=== PATIENT | male | born 1970 | race Two or more races ===

== ENCOUNTER 2020-11-14 14:34 | Outpatient (REF) | payer OTHER, SELFPAY ==
--- NOTE | ~2020-11-14 | US_ITS ---
EXAMINATION: US ABDOMEN LIMITED CLINICAL INFORMATION: Umbilical pain with cough/strain for 3 months. COMPARISON: None TECHNIQUE: Real-time imaging of the periumbilical region there is performed using grayscale imaging and color Doppler. Examination is performed at rest and with Valsalva. FINDINGS: There is 1 cm diastases at the umbilicus with borderline bowel herniation during Valsalva. There is no fixed hernia and loop of bowel or bowel wall thickening. No abdominal wall mass or hyperemia on color Doppler. US/US abdomen limited IMPRESSION: Borderline reducible herniation at the umbilicus. Abdominal wall may be further assessed with CT or MRI.
== END 2020-11-14 14:35 | disposition home or self-care (01) ==
LOC: HO.HMGCX 14:34
PROVIDERS: PCP Physician Assistant; Visit Provider Nurse Practitioner Family
DX: K42.9 Umbilical hernia without obstruction or gangrene (principal)
CPT/HCPCS: 76705

== ENCOUNTER → 2021-02-07 09:44 | Outpatient (BNVA) | payer OTHER, SELFPAY | PROVIDERS: PCP Physician Assistant; Visit Provider Surgery ==

== ENCOUNTER 2021-02-08 10:19 | Outpatient (REF) | payer OTHER, SELFPAY ==
[2021-02-08 11:34] LABS: Alanine Aminotransferase 34 U/L (0-40); Albumin Level 4.4 g/dL (3.5-5.0); Alkaline Phosphatase 74 U/L (39-117); Anion Gap 12 (12-20); Aspartate Amino Transferase 22 U/L (5-37); Bilirubin Total 0.4 mg/dL (0.0-1.0); Blood Urea Nitrogen 11 mg/dL (9-16); Calcium 9.6 mg/dL (8.4-10.2); Carbon Dioxide 26 mmol/L (22-29); Chloride 107 mmol/L (96-108); Cholesterol 210 mg/dL; Estimated Glomerular Filt Rate > 60; Glucose Fasting 126 mg/dL (60-99); HDL Cholesterol 51 mg/dL; LDL Cholesterol Calculated 136 mg/dl; Potassium 4.5 mmol/L (3.3-5.1); Sodium 140 mmol/L (135-145); Total Protein 7.2 g/dL (6.5-8.0); Triglycerides 117 mg/dL
[2021-02-08 11:38] LABS: Hematocrit 43.9 % (42-52); Hemoglobin 14.2 g/dl (14.0-18.0); Mean Corpuscular HGB Conc 32.3 g/dl (31.0-36.0); Mean Corpuscular Hemoglobin 25.3 pg (27.0-33.0); Mean Corpuscular Volume 78.3 fL (80-98); Mean Platelet Volume 11.6 fL (9.4-12.4); Platelet Count 243 X10*3/uL (160-400); Red Blood Count 5.61 X10*6/uL (4.60-5.80); Red Cell Distribution Width 15.9 % (11.0-16.0); White Blood Count 8.1 X10*3/uL (4.8-10.8)
[2021-02-08 11:53] LABS: Estimated Average Glucose 97 mg/dL
[2021-02-08 11:55] LABS: Prostate Specific Antigen Scr 0.47 ng/mL (<0.05-4.0)
== END 2021-02-08 10:20 | disposition home or self-care (01) ==
LOC: HO.LAB 10:19
PROVIDERS: PCP Physician Assistant; Visit Provider Physician Assistant
DX: Z12.5 Encounter for screening for malignant neoplasm of prostate (principal); Z13.1 Encounter for screening for diabetes mellitus; Z13.220 Encounter for screening for lipoid disorders; I10 Essential (primary) hypertension
CPT/HCPCS: 36415; 80053; 80061; 83036; 84153; 85027

== ENCOUNTER → 2021-03-05 14:01 | Outpatient (BNVA) | payer OTHER, SELFPAY | PROVIDERS: PCP Physician Assistant; Referring Provider Physician Assistant; Visit Provider Nurse Practitioner Family ==

== ENCOUNTER 2021-03-12 06:54 | Day surgery (SDC) | payer OTHER, SELFPAY ==
[2021-03-06 14:07] VITALS: BMI 35.2
--- NOTE | 2021-03-11 10:30 | HO.ANESPROP2 ---
Documented by User: Eve Sexton NP 03/11/21 10:32 HPI - Anesthesia Eval Consult details Narrative: 51yo M for Hernia Repair Umbilical with Poss Mesh PMFSH Active Problems Active Problems: All Active Problems (Updated 02/07/21 @ 10:12 by Obed Rivera MD) Umbilical hernia (Acute) Colon cancer screening (Acute) Screening for hypercholesterolemia (Acute) Screening for diabetes mellitus (DM) (Acute) Pain, dental (Acute) Constipation (Acute) Umbilical hernia (Acute) PRANAY (generalized anxiety disorder) (Acute) Erectile disorder, generalized, mild (Acute) Insomnia (Acute) Smoker (Acute) Past Medical History Medical History Constipation Elevated blood pressure reading Erectile disorder, generalized, mild PRANAY (generalized anxiety disorder) Insomnia Smoker Umbilical hernia Family History Family History Father No problems noted. Mother Hepatitis C Liver cancer Surgical History Surgical History No pertinent past surgical history Social History Social History Housing: House Alcohol intake: never Patient Tobacco Use Status: Current everyday Tobacco user Tobacco use type: Cigarette Cigarette Packs Per Day: 1 Cigarettes Per Day: 20.0 e-Cigarette/Vaping Use: Never Used Second Hand Smoke Exposure: No Advance Directives Information Provided: No Advance Directives on File: No service: No Current occupational status: employed Meds Allergies Allergy/AdvReac Type Severity Reaction Status Date / Time No Known Allergies Allergy Verified 03/05/21 14:06 Exam Exam Date and Time: March 11, 2021 1031 Height,Weight and Vital Signs: Height 5 ft 4 in Weight 93.2 kg Pertinent Lab Results Pertinent Lab Results: Laboratory Tests 02/08/21 02/08/21 10:26 10:26 WBC 8.1 Hgb 14.2 Hct 43.9 Plt Count 243 Sodium 140 Potassium 4.5 Chloride 107 Carbon Dioxide 26 BUN 11 Creatinine 1.00 Assessment and Plan Assessment Anesthesia Assessment: Chart Reviewed Documented by User: Cecilia Ferrara MD 03/12/21 08:45 PMFSH Past Medical History Medical History Constipation Elevated blood pressure reading Erectile disorder, generalized, mild PRANAY (generalized anxiety disorder) Insomnia Smoker Umbilical hernia Family History Family History Father No problems noted. Mother Hepatitis C Liver cancer Family history of problems with anesthesia: No Surgical History Surgical History No pertinent past surgical history History of Problems with Anesthesia: No Social History Social History Housing: House Alcohol intake: never Patient Tobacco Use Status: Current everyday Tobacco user Tobacco use type: Cigarette Cigarette Packs Per Day: 1 Cigarettes Per Day: 20.0 e-Cigarette/Vaping Use: Never Used Second Hand Smoke Exposure: No Advance Directives Information Provided: No Advance Directives on File: No service: No Current occupational status: employed Meds Allergies Allergy/AdvReac Type Severity Reaction Status Date / Time No Known Allergies Allergy Verified 03/05/21 14:06 Exam Airway Mallampati Class: II TM Dist: >3cm Neck ROM: Full Loose/Missing/Broken Teeth: Yes Assessment and Plan Assessment Anesthesia Assessment: Anesthesia Plan Discussed Final Anesthetic Review Family History of Problems with Anesthesia: No History of Problems with Anesthesia: No NPO: Yes ASA Class: II Final Preanesthetic Review: No Changes in Pt Med Stat, Meds/Allgs Chart Reviewed, Consent Obtained/Reviewed and Anes Risks/Benef Reviewed Patient Risk: Low Procedure Risk: Low Assessment/Block/Sedation in SS: Assess/Block/Sedation-SS Anesthetic Plan Anesthetic Plan: GA Disposition: Standard PACU
[2021-03-12] VITALS (7 sets, daily range): BP systolic 119–146; BP diastolic 81–99; PULSE 68–77; RESP 16–20; TEMP 36–36.2; O2SAT 94–100
[2021-03-12] MEDS: Lactated Ringers 1,000 ML 100 ML IVCONT (07:27)
--- NOTE | 2021-03-12 08:22 | MHC.SHP ---
Pre-Procedural Eval Section A Date of Service: 03/12/21 Section B Chief Complaint: Umbilical Hernia Allergies: Allergies Allergy/AdvReac Type Severity Reaction Status Date / Time No Known Allergies Allergy Verified 03/05/21 14:06 Plan I have reviewed the history and physical and performed a pertinent physical examination on my patient. No changes have occurred unless specified.
--- NOTE | 2021-03-12 08:57 | P.OP_ITS ---
Operative Note Operative Note Date of Service: 03/12/21 Narrative: Preop diagnosis: Umbilical hernia Postop diagnosis: Umbilical hernia Procedure: Repair of umbilical hernia with Ventralex mesh Surgeon: Obed Rivera MD [employer] hotel assistant general manager: DIPTI Carter The patient is a 51-year-old male with a reducible mass on the umbilicus just at the infraumbilical margin. In view of symptoms, he wanted to proceed with repair of this umbilical hernia. He understood the technique of the procedure. He was aware of the risks, benefits, and alternatives She was brought to the operating room and placed supine on the table under general anesthesia via laryngeal mask airway. The abdomen is prepped and draped in the usual sterile fashion. A surgical time-out was done. The patient received cefazolin 2 g IV preoperatively. I infiltrated the periumbilical area with lidocaine 1%. I then made an infraumbilical incision transversely in a curvilinear fashion using a blade 15. This was carried down through the full-thickness of the skin and subcutaneous fat with electrocautery. We then proceeded to define a plane of dissection underneath the umbilicus to lift this up above the fascia. This was done using electrocautery as well as Metzenbaum scissors. By doing so, I was able to visualize the hernia which contained fat. I the sac from the rest of the umbilicus and subcutaneous layer. I continued to sharply dissect this down to the fascial level. I sharply dissected the sac from the fascial edges by dividing the adhesions including part of the sac using electrocautery. By doing so was able to completely free up the entire hernia and this was reduced through the defect. The defect measured about 1.5 cm in diameter. I made sure that the margins around defect was clear by visually inspecting this. I then positioned a small-sized Ventralex mesh underneath the fascial defect. This was flattened. I secured the Prolene straps of the mesh with Prolene to suture to the fascia. I trimmed the straps flush at the fascial level. I then proceeded to close the fascial defect with a [id number] Maxon 1 stitch. I irrigated. I reapposed the subcutaneous layer with Dexon 3-0 interrupted sutures. Skin closure was achieved with Dexon 4-0 subcuticular running stitch. I infiltrated the area with Marcaine 0.5% for postop analgesia. Steri-Strips and dressings were applied and the procedure was completed The patient tolerated procedure well.. Initial fine counts of sponges and instruments were correct. Estimated blood loss about 2 cc. The patient is extubated without difficulty and transferred to the recovery room with stable vital signs.
--- NOTE | 2021-03-12 09:01 | PM.OP ---
Brief Operative Note Date of Service: 03/12/21 Pre-op diagnosis: Umbilical hernia Post-op diagnosis: same Procedure: Repair of umbilical hernia with Ventralex mesh Surgeon: Obed Rivera MD Anesthesia: GLMA Was an Specimen Transporter used for this Procedure?: No Specimen Transporter: Yaz Carter Estimated blood loss (mL): 2 Pathology: none sent Condition: stable Disposition: PACU
== END 2021-03-12 10:40 | disposition home or self-care (01) ==
PROVIDERS: PCP Physician Assistant; Visit Provider Surgery
PROC: (CPT 49585; principal; 2021-03-12 08:30)
DX: K42.9 Umbilical hernia without obstruction or gangrene (principal)
CPT/HCPCS: 49585; C1781; J0690; J1100; J2250; J2405; J3010

== ENCOUNTER → 2021-03-25 10:39 | Outpatient (BNVA) | payer OTHER, SELFPAY | PROVIDERS: PCP Physician Assistant; Referring Provider Physician Assistant; Visit Provider Surgery ==

== ENCOUNTER 2021-05-15 08:16 | Day surgery (SDC) | payer OTHER, SELFPAY ==
[2021-05-08 13:34] VITALS: BMI 35.3
--- NOTE | 2021-05-14 10:17 | HO.ANESPROP2 ---
Documented by User: Eve Sexton NP 05/14/21 10:18 HPI - Anesthesia Eval Consult details Narrative: 51yo M for Colonoscopy PMF Active Problems Active Problems: All Active Problems (Updated 05/08/21 @ 13:34 by Amanda Gomez RN) Umbilical hernia (Acute) Pain, dental (Acute) Screening for diabetes mellitus (DM) (Acute) Screening for hypercholesterolemia (Acute) Colon cancer screening (Acute) Annual physical exam (Acute) HTN (hypertension) (Acute) Smoker (Acute) Borderline high cholesterol (Acute) Insomnia (Acute) Obese (Acute) Umbilical hernia (Acute) Past Medical History Medical History Constipation COVID-19 vaccine series completed Elevated blood pressure reading Erectile disorder, generalized, mild PRANAY (generalized anxiety disorder) Insomnia Smoker Umbilical hernia Family History Family History Father No problems noted. Mother Hepatitis C Liver cancer Family history of problems with anesthesia: No Surgical History Surgical History History of umbilical hernia repair History of Problems with Anesthesia: No Social History Social History Housing: House Are you a primary primary care sales representative to a significant other at home: No Do you presently have visiting nurse or other home services: No Alcohol intake: never Patient Tobacco Use Status: Current everyday Tobacco user Tobacco use type: Cigarette Cigarette Packs Per Day: 1 Cigarettes Per Day: 20.0 Years Smoked: 20 e-Cigarette/Vaping Use: Never Used Second Hand Smoke Exposure: No Use of substances other than those prescribed or required for medical reasons: No Have you been hit, kicked, punched, or otherwise hurt by someone within the past year? If so, by whom?: No Are you DNR?: No Advance Directives: No Advance Directives Information Provided: Yes (informational brochure mailed) Advance Directives on File: No Recently lost weight without trying: No Eating poorly because of decreased appetite: No Nutrition Risks: No Nutritional Risk service: No Current occupational status: employed Meds Allergies Allergy/AdvReac Type Severity Reaction Status Date / Time No Known Allergies Allergy Verified 05/15/21 08:20 Exam Exam Date and Time: May 14, 2021 1017 Height,Weight and Vital Signs: Height 5 ft 4 in Weight 93.44 kg Pertinent Lab Results Pertinent Lab Results: Laboratory Tests 02/08/21 02/08/21 10:26 10:26 WBC 8.1 Hgb 14.2 Hct 43.9 Plt Count 243 Sodium 140 Potassium 4.5 Chloride 107 Carbon Dioxide 26 BUN 11 Creatinine 1.00 Assessment and Plan Assessment Anesthesia Assessment: Chart Reviewed Final Anesthetic Review Family History of Problems with Anesthesia: No History of Problems with Anesthesia: No Documented by User: Lamin Macias 05/15/21 08:57 PMFSH Past Medical History Medical History Constipation COVID-19 vaccine series completed Elevated blood pressure reading Erectile disorder, generalized, mild PRANAY (generalized anxiety disorder) Insomnia Smoker Umbilical hernia Functional capacity: independent ambulation Family History Family History Father No problems noted. Mother Hepatitis C Liver cancer Surgical History Surgical History History of umbilical hernia repair Social History Social History Housing: House Are you a primary primary care sales representative to a significant other at home: No Do you presently have visiting nurse or other home services: No Alcohol intake: never Patient Tobacco Use Status: Current everyday Tobacco user Tobacco use type: Cigarette Cigarette Packs Per Day: 1 Cigarettes Per Day: 20.0 Years Smoked: 20 e-Cigarette/Vaping Use: Never Used Second Hand Smoke Exposure: No Use of substances other than those prescribed or required for medical reasons: No Have you been hit, kicked, punched, or otherwise hurt by someone within the past year? If so, by whom?: No Are you DNR?: No Advance Directives: No Advance Directives Information Provided: Yes (informational brochure mailed) Advance Directives on File: No Recently lost weight without trying: No Eating poorly because of decreased appetite: No Nutrition Risks: No Nutritional Risk service: No Current occupational status: employed Meds Allergies Allergy/AdvReac Type Severity Reaction Status Date / Time No Known Allergies Allergy Verified 05/15/21 08:20 Exam Airway Mallampati Class: II TM Dist: >3cm Neck ROM: Full Loose/Missing/Broken Teeth: Yes Heart: rrr Lungs: b/l breath sounds Assessment and Plan Final Anesthetic Review NPO: Yes ASA Class: II Final Preanesthetic Review: Meds/Allgs Chart Reviewed and Anes Risks/Benef Reviewed Patient Risk: Intermediate Procedure Risk: Intermediate Anesthetic Plan Anesthetic Plan: MAC: Disposition: Standard PACU
[2021-05-15 08:34] VITALS: BP 147/97; PULSE 92; RESP 20; TEMP 36.6; O2SAT 99
[2021-05-15] MEDS: Lactated Ringers 1,000 ML 100 ML IVCONT (08:43)
--- NOTE | 2021-05-15 09:06 | P.HPSUR_ITS ---
Pre-Procedural Eval Section A Date of Service: 05/15/21 Section B Chief Complaint: screening Relevant Family History (Specify if Yes): No Relevant Social History: Tobacco Use Present Medications: see Short Stay Collaborative assessment Medical History: Significant History (Constipation COVID-19 vaccine series completed Elevated blood pressure reading Erectile disorder, generalized, mild PRANAY (generalized anxiety disorder) Insomnia Smoker Umbilical hernia) History of Previous Operations: Relevant previous surgery/procedure and date(s) (umbilical hernia repair) Allergies: Allergies Allergy/AdvReac Type Severity Reaction Status Date / Time No Known Allergies Allergy Verified 05/15/21 08:20 Review of Systems Sugical H&P ROS: Negative: Constitution, Cardiovascular, Respiratory, Neurological, Psychiatric, Hem-Onc, Allergic/Immunologic, Gastrointestinal, G enitourinary, Musculoskeletal, Integumentary, Endocrine and Eyes/Ears/Nose/Throat Exam Surgical H&P Exam: Normal: HEENT, Normal: Heart, Normal: Lungs, Normal: Extremities, Normal: Abdomen, Normal: Skin and Normal: Neurological Plan Diagnosis/Plan: Unchanged I have reviewed the history and physical and performed a pertinent physical examination on my patient. No changes have occurred unless specified.
--- NOTE | 2021-05-15 09:07 | PM.OP ---
Brief Operative Note Date of Service: 05/15/21 Pre-op diagnosis: colon screen Post-op diagnosis: same Procedure: see op note Surgeon: Jason Willett MD Anesthesia: MAC Was an Account Support Manager used for this Procedure?: No Estimated blood loss (mL): 0 Condition: stable Disposition: PACU
--- NOTE | 2021-05-15 09:08 | W.PM.OPN ---
Operative Note Operative Note Date of Service: 05/15/21 Narrative: Operative Information Procedure Description: Colonoscopy COLONOSCOPY Instrument: Olympus variable stiffness adult scope 190L Colonoscopy Monitoring: Vital signs and clinical assessment, continuous EKG monitoring, Pulse oximetry, Carbon Dioxide monitoring and blood pressure monitoring were done throughout the procedure. Colon withdrawal time was 21 minutes. Procedure: The patient was placed in the left lateral decubitis position and pre-procedure medications were administered. After a digital rectal examination of the ano-rectum, the video colonoscope was inserted into the rectum and advanced through the colon to the cecum/TI. The colonoscope was slowly withdrawn in a retrograde panoramic fashion and the colon mucosa was carefully examined including a retroflexed view of the rectum. Findings and interventions are described below. Procedure Difficulty:easy Findings: Terminal Ileum-normal Cecum:normal Ascending Colon: 10-12 mm sessile polyp raised with ORISE then removed with cold snare and x 2 clips applied for hemostasis Transverse Colon -normal Descending Colon:normal Sigmoid Colon: mild diverticulosis noted, 10 mm sessile polyp removed with cold snare Rectum: Retroflexion with medium sized internal hemorrhoids, grade II, x 2 sessile polyps 8-9 mm removed with cold snare Anorectum - internal hemorrhoids seen on forward view, mildly inflammed Colon preparation: Melville Bowel Preparation Scale Right colon; 3 Transverse colon: 3 Left colon; 3 (0 = Unprepared colon segment with mucosa not seen due to solid stool that cannot be cleared. 1 = Portion of mucosa of the colon segment seen, but other areas of the colon segment not well seen due to staining, residual stool and/or opaque liquid. 2 = Minor amount of residual staining, small fragments of stool and/or opaque liquid, but mucosa of colon segment seen well. 3 = Entire mucosa of colon segment seen well with no residual staining, small fragments of stool or opaque liquid) Impression and Post Procedure Diagnosis: polyps internal hemorrhoids diverticular disease Plan: High fiber diet leaflet Avoid straining at stool, epsom salts and sitz bath, anusol supps or cream Repeat Colonoscopy in 5 years due to polyps or earlier if clinically indicated Above findings were reviewed with the patient and relevant handouts were provided if indicated.
[2021-05-15 09:46] VITALS: BP 116/79; PULSE 92; RESP 13; TEMP 36.2; O2SAT 97
[2021-05-15 10:01] VITALS: BP 124/96; PULSE 88; RESP 16; TEMP 36.2; O2SAT 98
== END 2021-05-15 11:20 | disposition home or self-care (01) ==
PROVIDERS: PCP Physician Assistant; Visit Provider Internal Medicine Gastroenterology
PROC: 0DJD8ZZ Inspection of Lower Intestinal Tract, Via Natural or Artificial Opening Endoscopic (ICD-10-PCS; CPT 45378; principal; 2021-05-15 09:20)
DX: Z12.11 Encounter for screening for malignant neoplasm of colon (principal); D12.2 Benign neoplasm of ascending colon; D12.5 Benign neoplasm of sigmoid colon; D12.8 Benign neoplasm of rectum; K57.30 Diverticulosis of large intestine without perforation or abscess without bleeding; K64.1 Second degree hemorrhoids; K59.00 Constipation, unspecified; K42.9 Umbilical hernia without obstruction or gangrene; R03.0 Elevated blood-pressure reading, without diagnosis of hypertension; G47.00 Insomnia, unspecified; F41.1 Generalized anxiety disorder; F17.210 Nicotine dependence, cigarettes, uncomplicated; Z79.899 Other long term (current) drug therapy
CPT/HCPCS: 45385; 88305

== ENCOUNTER → 2021-05-29 07:58 | Outpatient (BNVA) | payer OTHER, SELFPAY | PROVIDERS: PCP Physician Assistant; Referring Provider Physician Assistant; Visit Provider Nurse Practitioner Family ==

== ENCOUNTER 2021-07-09 09:33 | Outpatient (REF) | payer OTHER, SELFPAY ==
--- NOTE | ~2021-07-09 | US_ITS ---
EXAMINATION: US ABDOMEN COMPLETE CLINICAL INFORMATION: Abdominal distention. Epigastric discomfort. Assess for biliary disease. COMPARISON: Ultrasound abdominal wall 11/14/2020. TECHNIQUE: Real-time imaging of the abdominal viscera. FINDINGS: PANCREAS: The visualized pancreas is normal in size and contour and echogenicity. No pancreatic ductal distention. No retroperitoneal effusion. The pancreatic tail is obscured by bowel gas and not imaged. ABDOMINAL AORTA: The proximal, mid, and distal segments are normal in caliber. INFERIOR VENA CAVA: Visualized portions are normal. LIVER: The liver is normal in size and smooth in contour. There is mild increased hepatic parenchymal echogenicity consistent with hepatic steatosis. Some minor subcapsular sparing is seen adjacent to the gallbladder fossa. No focal hepatic parenchymal lesion. No intrahepatic biliary ductal dilatation. GALLBLADDER: Normal. The gallbladder is physiologically distended without evidence of stones, sludge, polyps, wall thickening or pericholecystic fluid. Negative sonographic Newton's sign. COMMON BILE DUCT: Normal in caliber measuring 0.3 cm in diameter. RIGHT KIDNEY: Normal. No hydronephrosis. No renal calculi or focal parenchymal lesions. The kidney measures 11.7 cm in maximum dimension. LEFT KIDNEY: Normal. No hydronephrosis. No renal calculi or focal parenchymal lesions. The kidney measures 12.8 cm in maximum dimension. SPLEEN: Normal. The spleen measures 10.6 cm in maximum dimension. FREE FLUID: None. US/US abdomen complete IMPRESSION: 1. Hepatic steatosis. No focal parenchymal lesion. 2. Normal gallbladder. No ductal dilatation.
== END 2021-07-09 09:34 | disposition home or self-care (01) ==
LOC: HO.US 09:33
PROVIDERS: PCP Physician Assistant; Visit Provider Physician Assistant
DX: R14.0 Abdominal distension (gaseous) (principal)
CPT/HCPCS: 76700

== ENCOUNTER 2021-09-20 11:16 | Outpatient (REF) | payer OTHER, SELFPAY ==
[2021-09-20 11:57] LABS: Hematocrit 45.6 % (42.0-52.0); Hemoglobin 14.5 g/dl (14.0-18.0); Mean Corpuscular HGB Conc 31.8 g/dl (31.0-36.0); Mean Corpuscular Volume 78.5 fL (80.0-98.0); Mean Platelet Volume 10.6 fL (9.4-12.4); Platelet Count 258 X10*3/uL (160-400); Red Blood Count 5.81 X10*6/uL (4.60-5.80); Red Cell Distribution Width 15.6 % (11.0-16.0)
[2021-09-20 12:21] LABS: Alanine Aminotransferase 43 U/L (0-40); Albumin Level 4.6 g/dL (3.5-5.0); Alkaline Phosphatase 76 U/L (39-117); Anion Gap 11 (12-20); Aspartate Amino Transferase 26 U/L (5-37); Bilirubin Total 0.5 mg/dL (0.0-1.0); Blood Urea Nitrogen 10 mg/dL (9-16); Calcium 9.8 mg/dL (8.4-10.2); Carbon Dioxide 28 mmol/L (22-29); Chloride 104 mmol/L (96-108); Cholesterol 218 mg/dL; Estimated Glomerular Filt Rate > 60; Glucose Fasting 106 mg/dL (60-99); HDL Cholesterol 47 mg/dL; LDL Cholesterol Calculated 150 mg/dl; Potassium 4.4 mmol/L (3.3-5.1); Sodium 139 mmol/L (135-145); Total Protein 7.6 g/dL (6.5-8.0); Triglycerides 107 mg/dL
[2021-09-20 12:41] LABS: TSH reflex Free T4 0.58 uIU/mL (0.32-4.0)
== END 2021-09-20 11:17 | disposition home or self-care (01) ==
LOC: HO.LAB 11:16
PROVIDERS: PCP Physician Assistant; Visit Provider Physician Assistant
DX: E78.9 Disorder of lipoprotein metabolism, unspecified (principal); I10 Essential (primary) hypertension
CPT/HCPCS: 36415; 80053; 80061; 84443; 85027

== ENCOUNTER 2021-09-21 09:29 | Outpatient (REF) | payer OTHER, SELFPAY ==
[2021-09-21 09:53] LABS: Creatinine Urine 217.52 mg/dL; Microalbum/Creatinine Ratio Ur 7.3 ug/mg cr
== END 2021-09-21 09:30 | disposition home or self-care (01) ==
LOC: HO.LNP 09:29
PROVIDERS: Visit Provider Physician Assistant
DX: I10 Essential (primary) hypertension (principal); K29.70 Gastritis, unspecified, without bleeding
CPT/HCPCS: 82043; 87338

== ENCOUNTER 2023-04-06 07:58 | Outpatient (AMB) | payer OTHER, SELFPAY ==
--- NOTE | 2023-04-06 08:08 | A.OFFPC_ITS ---
Vital Signs 04/06/23 08:10 Height 5 ft 4 in Weight 217 lb BMI 37.2 BP 138/90 H Blood Pressure Location Lt brachial Position Sitting Pulse 73 Pulse Source Pulse Oximeter Pulse Oximetry (%) 98 Oxygen Delivery Method Room Air Intake Visit Reasons: PE Intake Note: Patient here for a physical exam Customer Account Specialist Required: No Accompanied by: Self / Same As Patient Allergies No Known Allergies Allergy (Verified 04/06/23 08:15) Medication List - Last Reconciled 04/06/23 by Missael Zafar PA-C blood pressure test kit-large As directed Tobacco use date assessed: 04/06/23 Dental Screening Dental Screen Date: 04/06/23 Did you have a dental visit in the last 12 months?: No Did you have a dental problem in the last 6 months where you did not have access to dental care?: No Was dental information given to patient?: Patient has dentist HPI PE HPI Details Patient is a 53 -year-old male here today for an annual physical ?Patient has past medical history of tobacco use disorder, hypertension, erectile dysfunction, obesity. . smoking: At last visit we discussed his smoking and unfortunately patient continues to smoke.? He reports his trigger is his stress and anxiety.? ?t. He has tried Wellbutrin though was ineffective. He would like to try nicotine patches again as it has been effective for him in the past .. GERD:? Reports using omeprazole on a p.r.n. basis.? Reports his GI symptoms have worsened over last several months. He reports a lot of abdominal distension and gas buildup after he eats..? He did get ultrasound of his abdomen that did show mild fatty liver disease Elevated blood pressure readings:? Blood pressure today in office elevated. He reports having 2 cigarettes before his doctor's appointment today. He is not interested in starting blood pressure medication at this time will like to work on lifestyle modifications to reduce his blood pressure.? He was advised to monitor blood pressure at home though has not gotten himself a blood pressure cuff to do home blood pressure monitoring. LABS: ? Unfortunately has not gotten labs done before today's appointment. .. ? Obesity:? Unfortunately gained weight since last visit,? he does understand his BMI is over 30 and is willing to adapt to eating habits to be more physically active to reduce his weight. Vaccine: UTD with COVID Vaccine,, Declines flu vaccine, considering Shingles vaccine , Need Tdap. . Colonoscopy: Colonoscopy done in 2020. Had colon polyp needs repeat 3 year (2023) [facility] Medical History (Updated 04/06/23 @ 08:23 by Missael Zafar PA-C) Pain, dental Internal hemorrhoid Tubular adenoma COVID-19 vaccine series completed Umbilical hernia Constipation PRANAY (generalized anxiety disorder) Erectile disorder, generalized, mild Insomnia Smoker Elevated blood pressure reading Surgical History Hx of colonoscopy History of umbilical hernia repair Family History Father No problems noted. Mother Hepatitis C Liver cancer Social History Housing: House Are you a primary progressive care nurse to a significant other at home: No Do you presently have visiting nurse or other home services: No Alcohol intake: never Patient Tobacco Use Status: Current everyday Tobacco user Tobacco use type: Cigarette Cigarette Packs Per Day: 1 Cigarettes Per Day: 20.0 Years Smoked: 20 e-Cigarette/Vaping Use: Never Used Second Hand Smoke Exposure: No service: No Current occupational status: employed Current occupation: [employer] de[employer] Current occupational exposures/hazards: No Cognitive needs: No Hearing needs: No Vision needs: No Questionnaire PHQ-9 Over the last 2 weeks, how often have you been bothered by any of the following problems? 1. Little interest or pleasure in doing things: not at all 2. Feeling down, depressed, or hopeless: not at all 3. Trouble falling or staying asleep, or sleeping too much: not at all 4. Feeling tired or having little energy: not at all 5. Poor appetite or overeating: not at all 6. Feeling bad about yourself - or that you are a failure or have let yourself or your family down: not at all 7. Trouble concentrating on things, such as reading the newspaper or watching television: not at all 8. Moving or speaking so slowly that other people could have noticed. Or the opposite - being so fidgety or restless that you have been moving around a lot more than usual: not at all 9. Thoughts that you would be better off or of hurting yourself in some way: not at all Total score: 0 Depression Screening Interpretation: Negative Depression Screening Done: Yes 35844 - PHQ-9 Billing: Yes Source: Developed by Drs. Jean Carlos Cronin, Yessy Junior, Donnie Saunders and colleagues, with an educational joaquin from [employer]. Thrive Questionnaire Date Thrive assessed: 04/06/23 I am a: Patient What is your living situation today?: I have a steady place to live Within the past 12 months, did the food you bought not last and you didn't have the money to get more?: Never true Within the past 12 months, did you worry whether your food would run out before you got money to buy more?: Never true Do you have trouble paying for medicines?: No Do you have trouble getting transportation to medical appointments?: No Do you have trouble paying your heating and electricity bill?: No Do you have trouble taking care of your child, family member or friend?: No Do you have trouble with day-to-day activities such as bathing, preparing meals, shopping, managing finances, etc.?: No Are you currently unemployed and looking for a job?: No Are you interested in more education?: No Please select the resources that you would like help with: None Currently or been in a relationship where the following occur: no concerns reported AUDIT C Alcohol Use Questionnaire (AUDIT-C) 1. How often do you have a drink containing alcohol?: Monthly or less 2. How many drinks containing alcohol do you have on a typical day when you are drinking?: 1 or 2 3. How often do you have six or more drinks on one occasion?: Never Total Score: 1 PRANAY-7 AMB Questionnaire PRANAY-7 Date PRANAY - 7 assessed: 04/06/23 Feeling nervous, anxious, or on edge: 0 = Not at all Not being able to stop or control worryin = Not at all Worrying too much about different things: 0 = Not at all Trouble relaxin = Not at all Being so restless that it is hard to sit still: 0 = Not at all Becoming easily annoyed or irritable: 0 = Not at all Feeling afraid as if something awful might happen: 0 = Not at all Total PRANAY-7 score (0-4 normal; 5-9 mild; 10-14 moderate; 15-21 severe): 0 Source: Developed by Drs. Jean Carlos Cronin, Yessy Junior, Donnie Saunders and colleagues, with an educational joaquin from [employer]. PRANAY-7 Assessment Billing PRANAY-7 Assessment Tool: PRANAY-7 Assessment 71948 Review of Systems Const Denies body aches, Denies chills, Denies excessive sweating, Denies fatigue, Denies fever(s) and Denies headache(s) Eyes Denies blurry vision ENT Denies dysphagia, Denies vertigo, Denies dizziness, Denies headache(s), Denies hearing loss and Denies tinnitus Card Denies chest pain, Denies chest pain with activity, Denies syncope, Denies irregular heart rhythm and Denies dyspnea Resp Denies chest congestion, Denies cough, Denies hemoptysis, Denies dyspnea and Denies wheezing GI Denies abdominal pain, Denies melena, Denies hematochezia, Denies coffee ground emesis, Denies dysphagia, Denies diarrhea, Denies nausea and Denies vomiting Denies difficulty urinating, Denies dysuria, Denies urinary frequency, Denies urinary hesitancy and Denies urinary urgency Musc Denies arthralgias, Denies limited range of motion, Denies muscle cramps and Denies muscle weakness Skin/Breast Denies rash and Denies skin ulcer Neuro Denies Abnormal speech present, Denies confusion, Denies vertigo, Denies dizziness, Denies syncope, Denies headache(s), Denies memory loss and Denies seizure-like activity Psych Denies anxiety, Denies confusion, Denies depression, Denies memory loss, Denies panic attacks and Denies paranoia Endo Denies excessive sweating, Denies fatigue, Denies flushing, Denies polydipsia and Denies polyuria Aller/Immun Denies wheezing Physical exam (Primary Care) Vital Signs: Last Vital Signs Pulse 73 04/06/23 08:10 BP 138/90 H 04/06/23 08:10 Pulse Ox 98 04/06/23 08:10 Oxygen Delivery Method Room Air 04/06/23 08:10 BMI result Body Mass Index 37.2 BMI Assessment/Plan discussion: High Tobacco/Smoking Status: Tobacco use Status Tobacco use date assessed 04/06/23 04/06/23 08:14 Patient Tobacco Use Status Current everyday Tobacco 04/06/23 08:14 Tobacco use type Cigarette 04/06/23 08:14 e-Cigarette/Vaping Use Never Used 04/06/23 08:14 Are you ready to quit: No Tobacco cessation counseling provided: Yes Items discussed: Nicotine replacement Relapse Prevention: discussed the importance of a supportive environment, di scussed negative mood or depression after quitting, weight gain after smoking is common and discussed dietary, exercise and/or lifestyle changes Number of minutes spent counselin CPT code: 47311 - 4-10 Minutes PHQ-9: PHQ-9 Score PHQ-9: Total score 0 04/06/23 08:41 Depression Screening Interpretation: Negative Thrive Assessment: Date of Thrive Assessment Date Thrive assessed 04/06/23 04/06/23 08:14 Currently or been in a relationship where the following occur: no concerns reported Const Other: OBESE General: cooperative, comfortable, no acute distress, alert and awake; No confusion Orientation/consciousness: oriented to person, oriented to place, patient oriented x3 and No confusion HENMT Head: Yes normocephalic Ears: external ears normal and TM's normal bilaterally Face and sinus: No sinus tenderness Mouth: Normal oral and palatal mucosa present and tongue normal Teeth and gingiva: dentition normal and gingiva normal Throat: Yes posterior oropharynx normal, Yes tonsils normal and Yes uvula midline Eyes Conjunctivae: conjunctivae normal Sclerae: sclerae normal Pupils: Equal, round and reactive pupils present EOM: EOMs intact bilaterally Direct Ophthalmoscopy: No no photophobia Neck Neck: Yes no lymphadenopathy, No tender and Yes no JVD Thyroid: Thyroid normal Carotids: no bruits Chest Chest palpation & inspection: no tenderness Resp Effort & Inspection: normal respiratory effort, no audible wheezes, not labored and no stridor Auscultation: no crackles, no rales, no rhonchi and no wheezes Cardio Jugular venous distension: no JVD Rate: regular rate, not bradycardic and not tachycardic Rhythm: regular rhythm Bruits: no carotid bruits Peripheral pulses: Peripheral pulses 2+ throughout GI Inspection: Yes normal to inspection, No abdominal wall ecchymosis and No visible herniation Palpation (GI): Soft to palpation, nontender, no guarding, not rigid and No hepatosplenomegaly present Auscultation: normoactive bowel sounds General: Yes no CVA tenderness Back/Spine/Pelvis Back: no CVA tenderness and No back tenderness Cervical Spine: cervical ROM normal Thoracic/Lumbar Spine: thoracic and lumbar spine normal to inspection, straight leg raise negative bilaterally, No thoraco-lumbar ROM limited and No lumbar spinal tenderness Skin Lesions: no lesions Rashes: no rashes Wounds: no wounds Neuro General: oriented to person, oriented to place, patient oriented x3, CN's II-XI intact bilaterally and No confusion Cranial nerves: Yes Equal, round and reactive pupils present and Yes Normal accommodation reflex present Cognition (Neuro): normal cognition Speech: No Abnormal speech present Gait exam (Neuro): Normal gait present Motor exam (neuro): 5/5 motor strength present throughout Extrem Right upper extremity: full ROM; no cyanosis Left upper extremity: full ROM; no cyanosis Right lower extremity: no edema Left lower extremity: no edema Psych Appearance: grossly normal Mental Status: mental status grossly normal Affect: normal affect Attitude: cooperative Thought process: Normal thought process present Office Procedures Flu Questionnaire Does the patient have a severe egg allergy?: No Immunizations flu vacc [id number] 6mos up(PF) 60 mcg(15 mcgx4)/0.5 mL IM syringe Performing Provider: Missael Zafar PA-C [facility] Documented (not given) by: EVI Camara on 04/06/23 08:15 Reason Not Given: Patient Refused Assessment and Plan Assessment & Plan (1) Annual physical exam: Code(s): Z00.00 - Encounter for general adult medical examination without abnormal findings (2) Tobacco dependence: Code(s): F17.200 - Nicotine dependence, unspecified, uncomplicated Plan: Patient does understand he needs to quit smoking and has found very difficult to do so. He reports his trigger is his stress and anxiety. He is willing to try the nicotine patches again as it has worked for him in the past. (3) Obese: Code(s): E66.9 - Obesity, unspecified Qualifiers: Body mass index: BMI 36.0-36.9 Obesity classification: adult class 2 (BMI 35 - 39.9) Obesity type: due to excess calories Serious obesity comorbidity presence: without serious comorbidity Qualified Code(s): E66.09 - Other obesity due to excess calories; Z68.36 - Body mass index [BMI] 36.0-36.9, adult Plan: Unfortunately gained weight since last office visit. Patient does understand his BMI is well over 30 and is willing to be more physically active and adapted better eating habits to reduce his weight. (4) HTN (hypertension): Code(s): I10 - Essential (primary) hypertension Qualifiers: Hypertension type: primary hypertension Qualified Code(s): I10 - Essential (primary) hypertension Plan: Patient's blood pressure acceptable today in office. Has been trying to manage his blood pressure with lifestyle at this time. Occasionally does have high readings when he does come into the office though is not interested in starting blood pressure medication at this time. Will continue to monitor blood pressure at home with goal blood pressure be below 140/90 (5) Tubular adenoma: Code(s): D36.9 - Benign neoplasm, unspecified site Plan: Patient's most recent colonoscopy showing concerning colonic polyp. Needed r epeat colonoscopy in 3 years. 2023 (6) Gastritis: Code(s): K29.70 - Gastritis, unspecified, without bleeding Qualifiers: Chronicity: chronic Gastritis bleeding: without bleeding Gastritis type: unspecified gastritis Qualified Code(s): K29.50 - Unspecified chronic gastritis without bleeding Plan: Reports having some epigastric discomfort and often burping and belching. Willing to restart omeprazole due to his signs gastritis. Again advised to cut down and quit smoking. (7) Borderline high cholesterol: Code(s): E78.9 - Disorder of lipoprotein metabolism, unspecified Plan: Most recent lipid panel showing borderline high total cholesterol. Will work on lifestyle modifications to reduce his borderline high cholesterol. Orders: Orders Lipid Panel Today E78.9 - Disorder of lipoprotein metabolism, unspecified Prostate Specific Antigen Scr Today I10 - Essential (primary) hypertension, Z12.5 - Encounter for screening for malignant neoplasm of prostate Influenza [id number] Immunization Today Z23 - Encounter for immunization Comprehensive [place]. Panel Fast Today I10 - Essential (primary) hypertension H pylori Ag Stool Today K29.50 - Unspecified chronic gastritis without bleeding Referrals Thoracic Surgery Referral F17.200 - Nicotine dependence, unspecified, uncomplicated Medications: New nicotine 1 patch transdermal DAILY 14 days 14 ea 0RF F17.200 - Nicotine dependence, unspecified, uncomplicated nicotine 1 patch transdermal DAILY 14 days 14 ea 0RF F17.200 - Nicotine dependence, unspecified, uncomplicated omeprazole 20 mg PO DAILY 30 days 30 caps 3RF K29.50 - Unspecified chronic gastritis without bleeding simethicone (Gas Relief (simethicone)) after meals 180 mg PO BID 30 days 60 caps 3RF K29.50 - Unspecified chronic gastritis without bleeding Coding Level of Care Code Est Pt Prev Care 40-64y(28119) Diagnoses Annual physical exam Z00.00 Tobacco dependence F17.200 Class 2 obesity due to excess calories without serious comorbidity with body mass index (BMI) of 36.0 to 36.9 in adult E66.09; Z68.36 Body mass index: BMI 36.0-36.9 Obesity classification: adult class 2 (BMI 35 - 39.9) Obesity type: due to excess calories Serious obesity comorbidity presence: without serious comorbidity Primary hypertension I10 Hypertension type: primary hypertension Tubular adenoma D36.9 Chronic gastritis without bleeding, unspecified gastritis type K29.50 Chronicity: chronic Gastritis bleeding: without bleeding Gastritis type: unspecified gastritis Borderline high cholesterol E78.9 Additional Codes PRANAY-7 Assessment Billing - PRAANY-7 Assessment Tool: PRANAY-7 Assessment 38634 ([id number]) Vital Signs *Quality* - CPT code: 41223 - 4-10 Minutes ([id number])
[2023-04-06 08:10] VITALS: BP 138/90; PULSE 73; O2SAT 98; BMI 37.2
== END 2023-04-06 08:41 | disposition home or self-care (01) ==
PROVIDERS: Visit Provider Physician Assistant
DX: Z00.00 Encounter for general adult medical examination without abnormal findings (principal); F17.200 Nicotine dependence, unspecified, uncomplicated; E66.09 Other obesity due to excess calories; Z68.36 Body mass index [BMI] 36.0-36.9, adult; I10 Essential (primary) hypertension; D36.9 Benign neoplasm, unspecified site; K29.50 Unspecified chronic gastritis without bleeding; E78.9 Disorder of lipoprotein metabolism, unspecified
CPT/HCPCS: 99396

== ENCOUNTER 2024-02-25 11:23 | Outpatient (REF) | payer BC, SELFPAY ==
[2024-02-25 12:28] LABS: Hematocrit 47.5 % (42.0-52.0); Mean Corpuscular HGB Conc 33.7 g/dl (31.0-36.0); Mean Corpuscular Hemoglobin 25.3 pg (27.0-33.0); Mean Corpuscular Volume 75.2 fL (80.0-98.0); Mean Platelet Volume 11.1 fL (9.4-12.4); Platelet Count 212 X10*3/uL (160-400); Red Blood Count 6.32 X10*6/uL (4.60-5.80); Red Cell Distribution Width 15.5 % (11.0-16.0)
[2024-02-25 12:48] LABS: Estimated Average Glucose 258 mg/dL; Hemoglobin A1c % 10.6 % (<6.0)
[2024-02-25 12:50] LABS: Alanine Aminotransferase 26 U/L (0-40); Albumin Level 4.5 g/dL (3.5-5.0); Alkaline Phosphatase 116 U/L (39-117); Anion Gap 15 (12-20); Aspartate Amino Transferase 18 U/L (5-37); Bilirubin Total 0.7 mg/dL (0.0-1.0); Blood Urea Nitrogen 9 mg/dL (9-16); Calcium 10.1 mg/dL (8.4-10.2); Carbon Dioxide 27 mmol/L (22-29); Chloride 100 mmol/L (96-108); Cholesterol 242 mg/dL (<200); Estimated Glomerular Filt Rate > 60; Glucose Fasting 318 mg/dL (60-99); HDL Cholesterol 56 mg/dL (>40); LDL Cholesterol Calculated 161 mg/dL (<100); Potassium 4.2 mmol/L (3.3-5.1); Sodium 138 mmol/L (135-145); Total Protein 7.7 g/dL (6.5-8.0); Triglycerides 128 mg/dL (<150)
[2024-02-25 13:08] LABS: Prostate Specific Antigen Scr 0.86 ng/mL (<0.05-4.0)
== END 2024-02-25 11:24 | disposition home or self-care (01) ==
LOC: HO.LAB 11:23
PROVIDERS: PCP Physician Assistant; Visit Provider Physician Assistant
DX: E78.9 Disorder of lipoprotein metabolism, unspecified (principal); I10 Essential (primary) hypertension; Z12.5 Encounter for screening for malignant neoplasm of prostate; R73.01 Impaired fasting glucose
CPT/HCPCS: 36415; 80053; 80061; 82043; 82570; 83036; 84153; 85027

== ENCOUNTER 2024-03-23 09:50 | Outpatient (AMB) | payer BC, SELFPAY ==
[2024-03-23 10:06] VITALS: BMI 31.4
--- NOTE | 2024-03-23 10:06 | A.OFFVIS_ITS ---
VS Expanded 03/23/24 10:06 03/24/24 22:11 Height 5 ft 4 in 5 ft 4 in Weight 182 lb 12.211 oz 183 lb BMI 31.4 31.4 Intake Visit Reasons: T2DM/CONFIRMED Allergies No Known Allergies Allergy (Verified 04/06/23 08:15) Nutrition Presentation Details: Pt presents for MNt for T2DM. Pt was referred by PCP BS Monitoring Most Recent Diabetes Results: Microalb/Creat Ratio 7.3 ug/mg cr 09/21/21 Cholesterol 242 mg/dL (<200) H 02/25/24 HDL Cholesterol 56 mg/dL (>40) 02/25/24 Triglycerides 128 mg/dL (<150) 02/25/24 Creatinine 1.00 mg/dL (0.5-1.4) 02/25/24 Blood Urea Nitrogen 9 mg/dL (9-16) 02/25/24 Sodium 138 mmol/L (135-145) 02/25/24 Potassium 4.2 mmol/L (3.3-5.1) 02/25/24 Chloride 100 mmol/L (96-108) 02/25/24 Carbon Dioxide 27 mmol/L (22-29) 02/25/24 Calcium 10.1 mg/dL (8.4-10.2) 02/25/24 AST 18 U/L (5-37) 02/25/24 ALT 26 U/L (0-40) 02/25/24 Total Protein 7.7 g/dL (6.5-8.0) 02/25/24 Albumin 4.5 g/dL (3.5-5.0) 02/25/24 [id number]-Pv.Jeor Equation Height: 5 ft 4 in Weight: 183 lb Resting Metabolic Rate: 1589.48 Calculated Activity Level: Mild Activity Calories Needed to Maintain Weight: 2185.54 Diagnosis Nutrition problem #1: food nutri know defi As related to (etiology) #1: diagnosis As evidenced by (sign/symptom) #1: knowledge deficit of diet [facility] Medical History (Updated 02/25/24 @ 16:40 by Missael Zafar PA-C) Pain, dental Internal hemorrhoid Tubular adenoma COVID-19 vaccine series completed Umbilical hernia Constipation PRANAY (generalized anxiety disorder) Erectile disorder, generalized, mild Insomnia Smoker Elevated blood pressure reading Surgical History Hx of colonoscopy History of umbilical hernia repair Family History Father No problems noted. Mother Hepatitis C Liver cancer Social History Housing: House Are you a primary adult live in caregiver to a significant other at home: No Do you presently have visiting nurse or other home services: No Alcohol intake: never Patient Tobacco Use Status: Current everyday Tobacco user Tobacco use type: Cigarette Cigarette Packs Per Day: 1 Cigarettes Per Day: 20.0 Years Smoked: 20 e-Cigarette/Vaping Use: Never Used Second Hand Smoke Exposure: No service: No Current occupational status: employed Current occupation: [employer] de[employer] Current occupational exposures/hazards: No Cognitive needs: No Hearing needs: No Vision needs: No Assessment & Plan Assessment & Plan (1) DMII (diabetes mellitus, type 2): Code(s): E11.9 - Type 2 diabetes mellitus without complications Category: Medical Plan: Wt: 83 Kg ( 04/14 ) Est kcal needs as per MSJ: 2200 (40% carb, 30% protein/fat) Est fluid needs as per 25-30 ml/d: 2500 Est prot per day as per 1 g/kg bw: 83 Recommend fiber intake : 8-10 g per day and gradually increase to 25-28 g per day for women and 35-38 g for men or as tolerated Recommend sodium intake per day : less than 1500 mg less than 2000 mg Educated patient on: ( R = reviewed V = verbalizes understanding N/R = needs review N/A = not applicable * Food sources of carbohydrate, adequate serving sizes and its role in various health conditions: R V N/R * Differences between complex carbohydrates a simple carbohydrates, role of fiber in diet: R V N/R * Lean protein sources of foods: R V NR * Differences between types of fats and role in diet (mono on saturated fat fatty acids, saturated fatty acids, trans fats): R V N/R * Food sources of sodium in salt and healthy modifications for heart health in kidney health: R V R/V * Vitamins and minerals: R * Healthy plate method concept: R * Physical activity: Benefits a precaution: R V N/R * Hypoglycemia protocol (rule of 15): R V N/R * Dietary prevention of Hyperglycemia: R V R/V Patient Instructions: Follow health plate method at dinner Choose whole grain foods Keep hydrated by having water/milk in plac eof juices/soda Coding Level of Care Code Nutr Indiv Intake (60369) Diagnoses DMII (diabetes mellitus, type 2) E11.9 Time Spent (min) 30
[2024-03-24 22:11] VITALS: BMI 31.4
== END 2024-03-23 10:50 | disposition home or self-care (01) ==
PROVIDERS: PCP Physician Assistant; Visit Provider Dietitian, Registered
DX: E11.9 Type 2 diabetes mellitus without complications (principal)

== ENCOUNTER → 2024-03-23 09:50 | Outpatient (BNVA) | payer BC, SELFPAY | PROVIDERS: PCP Physician Assistant; Visit Provider Dietitian, Registered | DX: E11.9 Type 2 diabetes mellitus without complications (principal); Z71.3 Dietary counseling and surveillance | CPT/HCPCS: 97802 ==

== ENCOUNTER 2024-03-28 08:08 | Outpatient (AMB) | payer BC, SELFPAY ==
[2024-03-28 08:11] VITALS: BP 118/80; BMI 31.2
--- NOTE | 2024-03-28 08:11 | A.OFFPC_ITS ---
Vital Signs 03/28/24 08:11 Height 5 ft 4 in Weight 182 lb BMI 31.2 BP 118/80 Blood Pressure Location Lt brachial Position Sitting Intake Visit Reasons: elevated blood sugar Podiatry Professor Required: No Accompanied by: Self / Same As Patient Allergies No Known Allergies Allergy (Verified 03/28/24 08:19) Medication List - Last Reconciled 03/28/24 by Missael Zaafr PA-C blood pressure test kit-large As directed metformin 500 mg PO BID 30 days nicotine 1 patch transdermal DAILY 14 days nicotine 1 patch transdermal DAILY 14 days omeprazole 20 mg PO DAILY Tobacco use date assessed: 03/28/24 Dental Screening Dental Screen Date: 03/28/24 Did you have a dental visit in the last 12 months?: No Did you have a dental problem in the last 6 months where you did not have access to dental care?: No Was dental information given to patient?: Patient has dentist HPI elevated blood sugar HPI Details Patient is a 54-year-old male here today problem visit. Has been noted to have elevated blood sugars recently an A1c above 10. He reports some blurry vision as well. He has been started on metformin 500 b.i.d. and his recently seen a napping machine operator to discuss diabetic diet. He reports have him some worsening blurred vision over the last 2 months. Has been trying to make some lifestyle changes in his diet. PLAN: Will increase his metformin to a 1000 b.i.d. for better glycemic control. At this point he is not interested in starting insulin as he would like to work on lifestyle and maxed out p.o. antihyperglycemics. [facility] Medical History (Updated 03/28/24 @ 08:23 by Missael Zafar PA-C) Pain, dental Internal hemorrhoid Tubular adenoma COVID-19 vaccine series completed Umbilical hernia Constipation PRANAY (generalized anxiety disorder) Erectile disorder, generalized, mild Insomnia Smoker Elevated blood pressure reading Surgical History Hx of colonoscopy History of umbilical hernia repair Family History Father No problems noted. Mother Hepatitis C Liver cancer Social History Housing: House Are you a primary medicare sales executive to a significant other at home: No Do you presently have visiting nurse or other home services: No Alcohol intake: never Patient Tobacco Use Status: Current everyday Tobacco user Tobacco use type: Cigarette Cigarette Packs Per Day: 1 Cigarettes Per Day: 20.0 Years Smoked: 20 e-Cigarette/Vaping Use: Never Used Second Hand Smoke Exposure: No service: No Current occupational status: employed Current occupation: [employer] Current occupational exposures/hazards: No Cognitive needs: No Hearing needs: No Vision needs: No Questionnaire Thrive Questionnaire Date Thrive assessed: 04/06/23 PRANAY-7 AMB Questionnaire PRANAY-7 Date PRANAY - 7 assessed: 04/06/23 Source: Developed by Drs. Jean Carlos Cronin, Yessy Junior, Donnie Saunders and colleagues, with an educational joaquin from [employer]. Review of Systems Const Denies headache(s) Eyes Reports blurry vision and Denies loss of vision ENT Denies vertigo, Denies dizziness, Denies headache(s) and Denies sore throat Card Denies chest pain, Denies leg edema and Denies lightheadedness Resp Denies cough, Denies hemoptysis and Denies wheezing GI Denies abdominal pain, Denies melena, Denies constipation, Denies diarrhea and Denies vomiting Denies dysuria, Denies urinary frequency and Denies urinary urgency Musc Denies arthralgias, Denies joint swelling, Denies numbness and Denies tingling Neuro Denies Abnormal speech present, Denies behavioral changes, Denies vertigo, Denies dizziness, Denies headache(s), Denies loss of vision, Denies memory loss, Denies numbness and Denies tingling Psych Denies anxiety, Denies behavioral changes, Denies depression, Denies memory loss and Denies panic attacks Liam/Lymph Denies easy bleeding and Denies easy bruising Aller/Immun Denies wheezing Physical exam (Primary Care) Vital Signs: Last Vital Signs BP 118/80 03/28/24 08:11 BMI result Body Mass Index 31.2 Tobacco/Smoking Status: Tobacco use Status Tobacco use date assessed 03/28/24 03/28/24 08:15 Patient Tobacco Use Status Current everyday Tobacco 03/28/24 08:15 Tobacco use type Cigarette 03/28/24 08:15 e-Cigarette/Vaping Use Never Used 03/28/24 08:15 Thrive Assessment: Date of Thrive Assessment Date Thrive assessed 04/06/23 03/28/24 08:15 Const General: healthy appearing, no acute distress, alert and awake Nutritional Appearance: well nourished Orientation/consciousness: oriented to person, oriented to place and oriented to time HENMT Ears: TM's normal bilaterally General nose exam: Normal nasal mucous membranes and turbinates present Eyes Conjunctivae: conjunctivae normal Sclerae: sclerae normal Pupils: Equal, round and reactive pupils present Neck Neck: Yes no lymphadenopathy and Yes no JVD Thyroid: Thyroid normal Carotids: no bruits Resp Effort & Inspection: normal respiratory effort and not tachypneic Auscultation: no crackles, no rales, no rhonchi and no wheezes Cardio Rate: regular rate Rhythm: regular rhythm Heart sounds: no murmurs and normal S1 and S2 GI Palpation (GI): Soft to palpation, nontender, no hepatomegaly and no splenomegaly Auscultation: normal bowel sounds Skin General skin exam: no rashes or lesions noted and dry skin Neuro General: oriented to person, oriented to place and oriented to time Cranial nerves: Yes Equal, round and reactive pupils present Speech: No Abnormal speech present Gait exam (Neuro): Normal gait present Motor exam (neuro): no tremor noted Extrem Right upper extremity: full ROM Left upper extremity: full ROM Right lower extremity: full ROM; no edema Left lower extremity: full ROM; no edema Psych Mental Status: mental status grossly normal Speech and movement: Normal speech and movement present Affect: normal affect Attitude: cooperative Thought process: Normal thought process present Office Procedures Flu Questionnaire Does the patient have a severe egg allergy?: No Has the patient ever had any past reaction to a flu shot?: Yes Immunizations Fluarix Triv [id number] (PF) 45 mcg (15 mcg x 3)/0.5 mL IM syringe Performing Provider: Missael Zafar PA-C [facility] [place] [facility] Documented (not given) by: EVI Camara on 03/28/24 08:16 Reason Not Given: Patient Refused Coding Level of Care Code Est Pt Level 4 (00536) Diagnoses Type 2 diabetes mellitus with hyperglycemia, without long-term current use of insulin E11.65 Diabetes mellitus rodent exterminator insulin use: without nursing home use Diabetes mellitus complication status: with hyperglycemia 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 He reports his blood sugar was still 300. Will increase his metformin to a 1000 b.i.d.. We did consider starting long-acting basal insulin though he would like to hold off and continue working on lifestyle modifications. Goal A1c is to be below 7.0 (2) Retinopathy due to secondary diabetes mellitus: Code(s): E13.319 - Other specified diabetes mellitus with unspecified diabetic retinopathy without macular edema Category: Medical Plan: Patient reports some worsening blurred vision over the last 2 months. Has been recently found to be diabetic. Concerns here for diabetic retinopathy. Will refer to Ophthalmology for complete dilated eye exam to evaluate his retina. Orders: Orders Influenza [id number] Immunization Today Z23 - Encounter for immunization Referrals Ophthalmology Referral E13.319 - Other specified diabetes mellitus with unspecified diabetic retinopathy without macular edema Medications: New blood sugar diagnostic (FreeStyle Lite Strips) As directed 100 ea 3RF E11.65 - Type 2 diabetes mellitus with hyperglycemia, E11.9 - Type 2 diabetes mellitus without complications lancets (FreeStyle Lancets) Testing once a day as needed 100 ea 3RF E11.65 - Type 2 diabetes mellitus with hyperglycemia, E11.9 - Type 2 diabetes mellitus without complications blood-glucose meter (FreeStyle Lite Meter kit) Testing once a day as needed 1 ea 0RF E11.65 - Type 2 diabetes mellitus with hyperglycemia metformin 1,000 mg PO BID 30 days 60 tabs 2RF E11.65 - Type 2 diabetes mellitus with hyperglycemia
== END 2024-03-28 08:39 | disposition home or self-care (01) ==
LOC: HO.HMCH 08:08
PROVIDERS: PCP Physician Assistant; Visit Provider Physician Assistant
DX: E11.65 Type 2 diabetes mellitus with hyperglycemia (principal); Z23 Encounter for immunization

== ENCOUNTER → 2024-03-28 08:08 | Outpatient (BNVA) | payer BC, SELFPAY | PROVIDERS: PCP Physician Assistant; Visit Provider Physician Assistant | DX: E11.65 Type 2 diabetes mellitus with hyperglycemia (principal); E11.319 Type 2 diabetes mellitus with unspecified diabetic retinopathy without macular edema; Z79.84 Long term (current) use of oral hypoglycemic drugs; Z28.21 Immunization not carried out because of patient refusal | CPT/HCPCS: 90471 ==

== ENCOUNTER 2024-04-11 08:01 | Outpatient (AMB) | payer BC, SELFPAY ==
[2024-04-11 08:15] VITALS: BP 126/80; BMI 31.8
--- NOTE | 2024-04-11 08:15 | MHC.PC.OV ---
Vital Signs 04/11/24 08:15 Height 5 ft 4 in Weight 185 lb BMI 31.8 BP 126/80 Blood Pressure Location Lt brachial Position Sitting Intake Visit Reasons: Annual Exam Intake Note: Patient here for a physical exam Bid Writer Required: No Accompanied by: Self / Same As Patient Allergies No Known Allergies Allergy (Verified 04/11/24 08:21) Medication List - Last Reconciled 04/11/24 by Missael Zafar PA-C blood pressure test kit-large As directed blood sugar diagnostic (FreeStyle Lite Strips) As directed blood-glucose meter (FreeStyle Lite Meter kit) Testing once a day as needed lancets (FreeStyle Lancets) Testing once a day as needed metformin 1,000 mg PO BID 30 days Tobacco use date assessed: 03/28/24 Dental Screening Dental Screen Date: 03/28/24 HPI Annual Exam HPI Details Patient is a 54 -year-old male here today for an annual physical ?Patient has past medical history of tobacco use disorder, hypertension, erectile dysfunction, obesity. .. Type 2 diabetes: Has a new diagnosis of type 2 diabetes, most recent A1c above 10. Has been noticing some worsening blurry vision. Patient continues on metformin a 1000 b.i.d. he reports he has been having some loose stool a side effect of his metformin. He does admit to his blood sugars on much better 130s to 170s. PLAN: Continue on low carbohydrate low sugar diet and continue on a 1000 mg b.i.d. of metformin. . smoking: At last visit we discussed his smoking and unfortunately patient continues to smoke.? He reports his trigger is his stress and anxiety.? He has tried Wellbutrin though was ineffective. .. Vaccine: UTD with COVID Vaccine,, Declines flu vaccine, considering Shingles vaccine , Needs Tdap. . Colonoscopy: Colonoscopy done in 2020. Had colon polyp needs repeat in 5 years [facility] Medical History Pain, dental Internal hemorrhoid Tubular adenoma COVID-19 vaccine series completed Umbilical hernia Constipation PRANAY (generalized anxiety disorder) Erectile disorder, generalized, mild Insomnia Smoker Elevated blood pressure reading Surgical History Hx of colonoscopy History of umbilical hernia repair Family History Father No problems noted. Mother Hepatitis C Liver cancer Social History Housing: House Are you a primary live in caregiver to a significant other at home: No Do you presently have visiting nurse or other home services: No Alcohol intake: never Patient Tobacco Use Status: Current everyday Tobacco user Tobacco use type: Cigarette Cigarette Packs Per Day: 1 Cigarettes Per Day: 20.0 Years Smoked: 20 e-Cigarette/Vaping Use: Never Used Second Hand Smoke Exposure: No service: No Current occupational status: employed Current occupation: [employer] Current occupational exposures/hazards: No Cognitive needs: No Hearing needs: No Vision needs: No Questionnaire PHQ-9 Over the last 2 weeks, how often have you been bothered by any of the following problems? 1. Little interest or pleasure in doing things: several days 2. Feeling down, depressed, or hopeless: not at all 3. Trouble falling or staying asleep, or sleeping too much: not at all 4. Feeling tired or having little energy: not at all 5. Poor appetite or overeating: not at all 6. Feeling bad about yourself - or that you are a failure or have let yourself or your family down: not at all 7. Trouble concentrating on things, such as reading the newspaper or watching television: not at all 8. Moving or speaking so slowly that other people could have noticed. Or the opposite - being so fidgety or restless that you have been moving around a lot more than usual: not at all 9. Thoughts that you would be better off or of hurting yourself in some way: not at all Total score: 1 Depression Screening Interpretation: Negative Depression Screening Done: Yes 85666 - PHQ-9 Billing: Yes Source: Developed by Drs. Jean Carlos Cronin, Yessy Junior, Donnie Saunders and colleagues, with an educational joaquin from [employer]. Thrive Questionnaire Date Thrive assessed: 04/06/23 I am a: Patient What is your living situation today?: I have a steady place to live Within the past 12 months, did the food you bought not last and you didn't have the money to get more?: Never true Within the past 12 months, did you worry whether your food would run out before you got money to buy more?: Never true Do you have trouble paying for medicines?: No Do you have trouble getting transportation to medical appointments?: No Do you have trouble paying your heating and electricity bill?: No Do you have trouble taking care of your child, family member or friend?: No Do you have trouble with day-to-day activities such as bathing, preparing meals, shopping, managing finances, etc.?: No Are you currently unemployed and looking for a job?: No Are you interested in more education?: No Please select the resources that you would like help with: None Currently or been in a relationship where the following occur: No concerns reported THRIVE Score: 0 AUDIT C Alcohol Use Questionnaire (AUDIT-C) 1. How often do you have a drink containing alcohol?: Never Total Score: 0 PRANAY-7 AMB Questionnaire PRANAY-7 Date PRANAY - 7 assessed: 04/06/23 Feeling nervous, anxious, or on edge: 0 = Not at all Not being able to stop or control worryin = Not at all Worrying too much about different things: 0 = Not at all Trouble relaxin = More than half the days Being so restless that it is hard to sit still: 0 = Not at all Becoming easily annoyed or irritable: 1 = Several days Feeling afraid as if something awful might happen: 0 = Not at all Total PRANAY-7 score (0-4 normal; 5-9 mild; 10-14 moderate; 15-21 severe): 3 Source: Developed by Drs. Jean Carlos Cronin, Yessy Junior, Donnie Saunders and colleagues, with an educational joaquin from [employer]. PRANAY-7 Assessment Billing PRANAY-7 Assessment Tool: PRANAY-7 Assessment 57646 Review of Systems Const Denies body aches, Denies chills, Denies excessive sweating, Denies fatigue, Denies fever(s) and Denies headache(s) Eyes Denies blurry vision ENT Denies dysphagia, Denies vertigo, Denies dizziness, Denies headache(s), Denies hearing loss and Denies tinnitus Card Denies chest pain, Denies chest pain with activity, Denies syncope, Denies irregular heart rhythm and Denies dyspnea Resp Denies chest congestion, Denies cough, Denies hemoptysis, Denies dyspnea and Denies wheezing GI Denies abdominal pain, Denies melena, Denies hematochezia, Denies coffee ground emesis, Denies dysphagia, Denies diarrhea, Denies nausea and Denies vomiting Denies difficulty urinating, Denies dysuria, Denies urinary frequency, Denies urinary hesitancy and Denies urinary urgency Musc Denies arthralgias, Denies limited range of motion, Denies muscle cramps and Denies muscle weakness Skin/Breast Denies rash and Denies skin ulcer Neuro Denies Abnormal speech present, Denies confusion, Denies vertigo, Denies dizziness, Denies syncope, Denies headache(s), Denies memory loss and Denies seizure-like activity Psych Denies anxiety, Denies confusion, Denies depression, Denies memory loss, Denies panic attacks and Denies paranoia Endo Denies excessive sweating, Denies fatigue, Denies flushing, Denies polydipsia and Denies polyuria Aller/Immun Denies wheezing Physical exam (Primary Care) Vital Signs: Last Vital Signs BP 126/80 04/11/24 08:15 BMI result Body Mass Index 31.8 BMI Assessment/Plan discussion: High BMI High, discussed plan: lifestyle, weight reduction, dietary and physical activity Tobacco/Smoking Status: Tobacco use Status Tobacco use date assessed 03/28/24 04/11/24 08:17 Patient Tobacco Use Status Current everyday Tobacco 04/11/24 08:17 Tobacco use type Cigarette 04/11/24 08:17 e-Cigarette/Vaping Use Never Used 04/11/24 08:17 Are you ready to quit: No Tobacco cessation counseling provided: Yes Items discussed: Nicotine replacement Relapse Prevention: discussed the importance of a supportive environment, discussed negative mood or depression after quitting, weight gain after smoking is common and discussed dietary, exercise and/or lifestyle changes Number of minutes spent counselin CPT code: 68977 - 4-10 Minutes PHQ-9: PHQ-9 Score PHQ-9: Total score 1 04/11/24 08:17 Depression Screening Interpretation: Negative Thrive Assessment: Date of Thrive Assessment Date Thrive assessed 04/06/23 04/11/24 08:17 Currently or been in a relationship where the following occur: No concerns reported Const General: cooperative, comfortable, no acute distress, alert and awake; No confusion Orientation/consciousness: oriented to person, oriented to place, patient oriented x3 and No confusion HENMT Head: Yes normocephalic Ears: external ears normal and TM's normal bilaterally Face and sinus: No sinus tenderness Mouth: Normal oral and palatal mucosa present and tongue normal Teeth and gingiva: dentition normal and gingiva normal Throat: Yes posterior oropharynx normal, Yes tonsils normal and Yes uvula midline Eyes Conjunctivae: conjunctivae normal Sclerae: sclerae normal Pupils: Equal, round and reactive pupils present EOM: EOMs intact bilaterally Direct Ophthalmoscopy: No no photophobia Neck Neck: Yes no lymphadenopathy, No tender and Yes no JVD Thyroid: Thyroid normal Carotids: no bruits Chest Chest palpation & inspection: no tenderness Resp Effort & Inspection: normal respiratory effort, no audible wheezes, not labored and no stridor Auscultation: no crackles, no rales, no rhonchi and no wheezes Cardio Jugular venous distension: no JVD Rate: regular rate, not bradycardic and not tachycardic Rhythm: regular rhythm Bruits: no carotid bruits Peripheral pulses: Peripheral pulses 2+ throughout GI Inspection: Yes normal to inspection, No abdominal wall ecchymosis and No visible herniation Palpation (GI): Soft to palpation, nontender, no guarding, not rigid and No hepatosplenomegaly present Auscultation: normoactive bowel sounds General: Yes no CVA tenderness Back/Spine/Pelvis Back: no CVA tenderness and No back tenderness Cervical Spine: cervical ROM normal Thoracic/Lumbar Spine: thoracic and lumbar spine normal to inspection, straight leg raise negative bilaterally, No thoraco-lumbar ROM limited and No lumbar spinal tenderness Skin Lesions: no lesions Rashes: no rashes Wounds: no wounds Neuro General: oriented to person, oriented to place, patient oriented x3, CN's II-XI intact bilaterally and No confusion Cranial nerves: Yes Equal, round and reactive pupils present and Yes Normal accommodation reflex present Cognition (Neuro): normal cognition Speech: No Abnormal speech present Gait exam (Neuro): Normal gait present Motor exam (neuro): 5/5 motor strength present throughout Extrem Right upper extremity: full ROM; no cyanosis Left upper extremity: full ROM; no cyanosis Right lower extremity: no edema Left lower extremity: no edema Psych Appearance: grossly normal Mental Status: mental status grossly normal Affect: normal affect Attitude: cooperative Thought process: Normal thought process present Coding Level of Care Code Est Pt Prev Care 40-64y(61861) Diagnoses Annual physical exam Z00.00 Type 2 diabetes mellitus with hyperglycemia, without long-term current use of insulin E11.65 Diabetes mellitus fci insulin use: without fci use Diabetes mellitus complication status: with hyperglycemia Primary hypertension I10 Hypertension type: primary hypertension Borderline high cholesterol E78.9 Tobacco dependence F17.200 Additional Codes PRANAY-7 Assessment Billing - PRANAY-7 Assessment Tool: PRANAY-7 Assessment 56861 ([id number]) Vital Signs *Quality* - CPT code: 09096 - 4-10 Minutes ([id number]) Assessment & Plan Assessment & Plan (1) Annual physical exam: Code(s): Z00.00 - Encounter for general adult medical examination without abnormal findings Category: Medical Plan: As per HPI (2) DMII (diabetes mellitus, type 2): Code(s): E11.9 - Type 2 diabetes mellitus without complications Category: Medical Qualifiers: Diabetes mellitus intermodal customer service insulin use: without intermodal customer service use Diabetes mellitus complication status: with hyperglycemia Qualified Code(s): E11.65 - Type 2 diabetes mellitus with hyperglycemia Plan: Patient's type 2 diabetes suboptimally controlled. He increased his metformin to a 1000 b.i.d.. He does report some loose stool though will like to continue on current dose. He has changed his diet to a low sugar, low-carbohydrate diet.. He does report his sugars have been better since increasing his metformin dose. Goal A1c is to be below 7.0. (3) HTN (hypertension): Code(s): I10 - Essential (primary) hypertension Category: Medical Qualifiers: Hypertension type: primary hypertension Qualified Code(s): I10 - Essential (primary) hypertension Plan: Patient's blood pressure today in office acceptable. He has been able to manage his blood pressure with lifestyle and dietary modifications. Goal blood pressures to remain below 140/90 (4) Borderline high cholesterol: Code(s): E78.9 - Disorder of lipoprotein metabolism, unspecified Category: Medical Plan: Patient's most recent lipid panel showing borderline high total cholesterol and LDL. He will work on lifestyle and dietary modifications to reduce his cholesterol. If LDL remains above 100 will consider starting low-dose statin therapy. (5) Tobacco dependence: Code(s): F17.200 - Nicotine dependence, unspecified, uncomplicated Category: Medical Plan: Srinivasan does understand he needs to quit smoking. He does have nicotine patches available to him Orders: Orders Comprehensive [place]. Panel Fast Today E11.65 - Type 2 diabetes mellitus with hyperglycemia Complete Blood Count no Diff Today E11.65 - Type 2 diabetes mellitus with hyperglycemia Hemoglobin A1c Today E11.65 - Type 2 diabetes mellitus with hyperglycemia Lipid Panel Today E78.9 - Disorder of lipoprotein metabolism, unspecified
== END 2024-04-11 08:44 | disposition home or self-care (01) ==
PROVIDERS: PCP Physician Assistant; Visit Provider Physician Assistant
DX: Z00.00 Encounter for general adult medical examination without abnormal findings (principal); E11.65 Type 2 diabetes mellitus with hyperglycemia; I10 Essential (primary) hypertension; E78.9 Disorder of lipoprotein metabolism, unspecified; F17.200 Nicotine dependence, unspecified, uncomplicated

== ENCOUNTER → 2024-04-11 08:01 | Outpatient (BNVA) | payer BC, SELFPAY | PROVIDERS: PCP Physician Assistant; Visit Provider Physician Assistant | DX: Z00.00 Encounter for general adult medical examination without abnormal findings (principal); E11.65 Type 2 diabetes mellitus with hyperglycemia; I10 Essential (primary) hypertension; E78.9 Disorder of lipoprotein metabolism, unspecified; F17.210 Nicotine dependence, cigarettes, uncomplicated; Z79.84 Long term (current) use of oral hypoglycemic drugs | CPT/HCPCS: 96127 ==

== ENCOUNTER 2024-06-14 09:17 | Outpatient (AMB) | payer BC, SELFPAY ==
[2024-06-14 09:50] VITALS: BP 142/90; PULSE 68; O2SAT 99; BMI 32.8
--- NOTE | 2024-06-14 09:50 | MHC.PC.OV ---
Vital Signs 06/14/24 09:50 Height 5 ft 4 in Weight 191 lb BMI 32.8 BP 142/90 H Blood Pressure Location Lt brachial Position Sitting Pulse 68 Pulse Source Pulse Oximeter Pulse Oximetry (%) 99 Oxygen Delivery Method Room Air Intake Visit Reasons: f/u DMII Brace Maker Required: No Accompanied by: Self / Same As Patient Allergies No Known Allergies Allergy (Verified 06/14/24 09:53) Medication List - Last Reconciled 06/14/24 by Missael Zafar PA-C blood pressure test kit-large As directed blood sugar diagnostic (FreeStyle Lite Strips) As directed blood-glucose meter (FreeStyle Lite Meter kit) Testing once a day as needed glipizide ER 5 mg PO DAILY 60 days lancets (FreeStyle Lancets) Testing once a day as needed metformin 1,000 mg PO BID 30 days Tobacco use date assessed: 03/28/24 Dental Screening Dental Screen Date: 03/28/24 HPI f/u DMII HPI Details Patient is a 54 -year-old male here today for ?Patient has past medical history of tobacco use disorder, hypertension, erectile dysfunction, obesity. .. Type 2 diabetes: Has a fairly new diagnosis type 2 diabetes. He did at that time report dietary indiscretion. He reports drinking a lot of soda and eating a lot of cereal. He has been placed on metformin though had side effect. He was using glipizide 5 mg extended release which has significantly reduced his blood sugars. Had a couple of episodes of blood sugars just below 70 which caused some jitteriness and fatigue. Today's A1c now at 4.4 from above 10. Will hold off on both metformin and glipizide for now. He is willing to try Ozempic to maintain some glycemic control and help him with weight loss. Tobacco dependency: Admits to continued smoking. He reports he is mentally prepared to quit smoking as of the new year. He does have access to nicotine patches. [facility] Medical History Pain, dental Internal hemorrhoid Tubular adenoma COVID-19 vaccine series completed Umbilical hernia Constipation PRANAY (generalized anxiety disorder) Erectile disorder, generalized, mild Insomnia Smoker Elevated blood pressure reading Surgical History Hx of colonoscopy History of umbilical hernia repair Family History Father No problems noted. Mother Hepatitis C Liver cancer Social History Housing: House Are you a primary lead care manager to a significant other at home: No Do you presently have visiting nurse or other home services: No Alcohol intake: never Patient Tobacco Use Status: Current everyday Tobacco user Tobacco use type: Cigarette Cigarette Packs Per Day: 1 Cigarettes Per Day: 20.0 Years Smoked: 20 e-Cigarette/Vaping Use: Never Used Second Hand Smoke Exposure: No service: No Current occupational status: employed Current occupation: [employer] Current occupational exposures/hazards: No Cognitive needs: No Hearing needs: No Vision needs: No Questionnaire Thrive Questionnaire Date Thrive assessed: 04/11/24 I am a: Patient What is your living situation today?: I have a steady place to live Within the past 12 months, did the food you bought not last and you didn't have the money to get more?: Never true Within the past 12 months, did you worry whether your food would run out before you got money to buy more?: Never true Do you have trouble paying for medicines?: No Do you have trouble getting transportation to medical appointments?: No Do you have trouble paying your heating and electricity bill?: No Do you have trouble taking care of your child, family member or friend?: No Do you have trouble with day-to-day activities such as bathing, preparing meals, shopping, managing finances, etc.?: No Are you currently unemployed and looking for a job?: No Are you interested in more education?: No Please select the resources that you would like help with: None Currently or been in a relationship where the following occur: No concerns reported THRIVE Score: 0 AUDIT C Alcohol Use Questionnaire (AUDIT-C) 2. How many drinks containing alcohol do you have on a typical day when you are drinking?: 1 or 2 3. How often do you have six or more drinks on one occasion?: Never Total Score: 0 PRANAY-7 AMB Questionnaire PRANAY-7 Date PRANAY - 7 assessed: 04/06/23 Source: Developed by Yessy Torres B.W. Vernon, Donnie Saunders and colleagues, with an educational joaquin from [employer]. Review of Systems Const Denies headache(s) Eyes Denies loss of vision ENT Denies vertigo, Denies dizziness, Denies headache(s) and Denies sore throat Card Denies chest pain, Denies leg edema and Denies lightheadedness Resp Denies cough, Denies hemoptysis and Denies wheezing GI Denies abdominal pain, Denies melena, Denies constipation, Denies diarrhea and Denies vomiting Denies dysuria, Denies urinary frequency and Denies urinary urgency Musc Denies arthralgias, Denies joint swelling, Denies numbness and Denies tingling Neuro Denies Abnormal speech present, Denies behavioral changes, Denies vertigo, Denies dizziness, Denies headache(s), Denies loss of vision, Denies memory loss, Denies numbness and Denies tingling Psych Denies anxiety, Denies behavioral changes, Denies depression, Denies memory loss and Denies panic attacks Liam/Lymph Denies easy bleeding and Denies easy bruising Aller/Immun Denies wheezing Physical exam (Primary Care) Vital Signs: Last Vital Signs Pulse 68 06/14/24 09:50 BP 142/90 H 06/14/24 09:50 Pulse Ox 99 06/14/24 09:50 Oxygen Delivery Method Room Air 06/14/24 09:50 BMI result Body Mass Index 32.8 Tobacco/Smoking Status: Tobacco use Status Tobacco use date assessed 03/28/24 06/14/24 09:52 Patient Tobacco Use Status Current everyday Tobacco 06/14/24 09:52 Tobacco use type Cigarette 06/14/24 09:52 e-Cigarette/Vaping Use Never Used 06/14/24 09:52 Are you ready to quit: Yes Tobacco cessation counseling provided: Yes Items discussed: Nicotine replacement Relapse Prevention: discussed the importance of a supportive environment, discussed negative mood or depression after quitting, weight gain after smoking is common and discussed dietary, exercise and/or lifestyle changes Number of minutes spent counselin CPT code: 92865 - 4-10 Minutes Thrive Assessment: Date of Thrive Assessment Date Thrive assessed 04/11/24 06/14/24 09:52 Currently or been in a relationship where the following occur: No concerns reported Const General: healthy appearing, no acute distress, alert and awake Nutritional Appearance: well nourished Orientation/consciousness: oriented to person, oriented to place and oriented to time HENMT Ears: TM's normal bilaterally General nose exam: Normal nasal mucous membranes and turbinates present Eyes Conjunctivae: conjunctivae normal Sclerae: sclerae normal Pupils: Equal, round and reactive pupils present Neck Neck: Yes no lymphadenopathy and Yes no JVD Thyroid: Thyroid normal Carotids: no bruits Resp Effort & Inspection: normal respiratory effort and not tachypneic Auscultation: no crackles, no rales, no rhonchi and no wheezes Cardio Rate: regular rate Rhythm: regular rhythm Heart sounds: no murmurs and normal S1 and S2 GI Palpation (GI): Soft to palpation, nontender, no hepatomegaly and no splenomegaly Auscultation: normal bowel sounds Skin General skin exam: no rashes or lesions noted and dry skin Neuro General: oriented to person, oriented to place and oriented to time Cranial nerves: Yes Equal, round and reactive pupils present Speech: No Abnormal speech present Gait exam (Neuro): Normal gait present Motor exam (neuro): no tremor noted Extrem Right upper extremity: full ROM Left upper extremity: full ROM Right lower extremity: full ROM; no edema Left lower extremity: full ROM; no edema Psych Mental Status: mental status grossly normal Speech and movement: Normal speech and movement present Affect: normal affect Attitude: cooperative Thought process: Normal thought process present Office Procedures Flu Questionnaire Does the patient have a severe egg allergy?: No Does the patient have severe life threatening allergies?: No Does the patient have a fever or illness today?: No Has the patient ever had Guillain-[place] Syndrome?: No Has the patient ever had any past reaction to a flu shot?: No Immunizations Fluarix Triv [id number] (PF) 45 mcg (15 mcg x 3)/0.5 mL IM syringe Performing Provider: Missael Zafar PA-C [facility] Documented (not given) by: FREDY Bonilla on 06/14/24 09:52 Reason Not Given: Patient Refused Coding Level of Care Code Est Pt Level 4 (36852) Diagnoses Type 2 diabetes mellitus with hyperglycemia, without long-term current use of insulin E11.65 Diabetes mellitus superintendent container terminal insulin use: without superintendent container terminal use Diabetes mellitus complication status: with hyperglycemia Tobacco dependence F17.200 Additional Codes Vital Signs *Quality* - CPT code: 69710 - 4-10 Minutes ([id number]) Assessment & Plan Assessment & Plan (1) DMII (diabetes mellitus, type 2): Code(s): E11.9 - Type 2 diabetes mellitus without complications Category: Medical Qualifiers: Diabetes mellitus custodial insulin use: without superintendent container terminal use Diabetes mellitus complication status: with hyperglycemia Qualified Code(s): E11.65 - Type 2 diabetes mellitus with hyperglycemia Plan: Patient's type 2 diabetes now well controlled. A1c now at 4.4 from 10.2. Will hold off on glipizide and metformin for now. He is willing to try Ozempic to maintain some glycemic control and added benefit of weight loss. Goal A1c is to remain below 7.0 (2) Tobacco dependence: Code(s): F17.200 - Nicotine dependence, unspecified, uncomplicated Category: Medical Plan: Patient does understand he needs to quit smoking. He has set a quit date of June 22. He has found success with nicotine patches in the past. Will supply patient with nicotine patches. Orders: Orders Influenza [id number] Immunization Today Z23 - Encounter for immunization Comprehensive [place]. Panel Fast Today E11.65 - Type 2 diabetes mellitus with hyperglycemia Microalbumin, Random (w Creat) Today E11.65 - Type 2 diabetes mellitus with hyperglycemia Complete Blood Count no Diff Today E11.65 - Type 2 diabetes mellitus with hyperglycemia Lipid Panel Today E78.9 - Disorder of lipoprotein metabolism, unspecified AMB Hemoglobin A1c Today E11.65 - Type 2 diabetes mellitus with hyperglycemia Prostate Specific Antigen Scr Today F17.200 - Nicotine dependence, unspecified, uncomplicated, Z12.5 - Encounter for screening for malignant neoplasm of prostate Medications: New semaglutide (Ozempic) for 4 weeks 0.25 mg (0.368 mL) subcut QWEEK 4 weeks 3 mL 0RF E11.65 - Type 2 diabetes mellitus with hyperglycemia nicotine 1 patch transdermal DAILY 14 days 14 ea 0RF F17.200 - Nicotine dependence, unspecified, uncomplicated nicotine 1 patch transdermal DAILY 14 days 14 ea 0RF F17.200 - Nicotine dependence, unspecified, uncomplicated On Hold glipizide ER Hold Comment: Doctor's Order 5 mg PO DAILY 60 days 60 tabs 0RF E11.65 - Type 2 diabetes mellitus with hyperglycemia
== END 2024-06-14 10:11 | disposition home or self-care (01) ==
PROVIDERS: PCP Physician Assistant; Visit Provider Physician Assistant
DX: E11.65 Type 2 diabetes mellitus with hyperglycemia (principal); F17.200 Nicotine dependence, unspecified, uncomplicated; Z23 Encounter for immunization

== ENCOUNTER → 2024-06-14 09:17 | Outpatient (BNVA) | payer BC, SELFPAY | PROVIDERS: PCP Physician Assistant; Visit Provider Physician Assistant | DX: E11.65 Type 2 diabetes mellitus with hyperglycemia (principal); F17.200 Nicotine dependence, unspecified, uncomplicated; Z28.21 Immunization not carried out because of patient refusal | CPT/HCPCS: 90471 ==

== ENCOUNTER 2024-09-12 09:21 | Outpatient (REF) | payer BC, SELFPAY ==
[2024-09-12 10:19] LABS: Hematocrit 43.9 % (42.0-52.0); Hemoglobin 14.4 g/dl (14.0-18.0); Mean Corpuscular HGB Conc 32.8 g/dl (31.0-36.0); Mean Corpuscular Hemoglobin 25.2 pg (27.0-33.0); Mean Corpuscular Volume 76.9 fL (80.0-98.0); Mean Platelet Volume 10.7 fL (9.4-12.4); Platelet Count 225 X10*3/uL (160-400); Red Blood Count 5.71 X10*6/uL (4.60-5.80); Red Cell Distribution Width 15.7 % (11.0-16.0); White Blood Count 8.7 X10*3/uL (4.8-10.8)
[2024-09-12 10:26] LABS: Estimated Average Glucose 97 mg/dL
[2024-09-12 10:51] LABS: Alanine Aminotransferase 20 U/L (0-40); Albumin Level 4.4 g/dL (3.5-5.0); Alkaline Phosphatase 65 U/L (39-117); Anion Gap 11 (12-20); Aspartate Amino Transferase 22 U/L (5-37); Bilirubin Total 0.2 mg/dL (0.0-1.0); Blood Urea Nitrogen 7 mg/dL (9-16); Calcium 9.4 mg/dL (8.4-10.2); Carbon Dioxide 27 mmol/L (22-29); Chloride 108 mmol/L (96-108); Cholesterol 190 mg/dL (<200); Estimated Glomerular Filt Rate > 60; Glucose Fasting 109 mg/dL (60-99); HDL Cholesterol 43 mg/dL (>40); LDL Cholesterol Calculated 112 mg/dL (<100); Potassium 4.4 mmol/L (3.3-5.1); Sodium 142 mmol/L (135-145); Total Protein 7.3 g/dL (6.5-8.0); Triglycerides 176 mg/dL (<150)
[2024-09-12 11:04] LABS: Prostate Specific Antigen Scr 0.81 ng/mL (<0.05-4.0)
[2024-09-12 12:52] LABS: Creatinine Urine 148.81 mg/dL; Microalbum/Creatinine Ratio Ur 6.7 ug/mg cr (<30)
== END 2024-09-12 09:22 | disposition home or self-care (01) ==
LOC: HO.LAB 09:21
PROVIDERS: PCP Physician Assistant; Visit Provider Physician Assistant
DX: E11.65 Type 2 diabetes mellitus with hyperglycemia (principal); E78.9 Disorder of lipoprotein metabolism, unspecified; Z12.5 Encounter for screening for malignant neoplasm of prostate; F17.200 Nicotine dependence, unspecified, uncomplicated; I10 Essential (primary) hypertension
CPT/HCPCS: 36415; 80053; 80061; 82043; 82570; 83036; 84153; 85027

== ENCOUNTER 2024-09-15 09:59 | Outpatient (AMB) | payer BC, SELFPAY ==
[2024-09-15 10:10] VITALS: BP 144/90; PULSE 74; TEMP 36.6; O2SAT 99; BMI 33.0
--- NOTE | 2024-09-15 10:10 | A.OFFPC_ITS ---
Vital Signs 09/15/24 10:10 Height 5 ft 4 in Weight 192 lb 4 oz BMI 33.0 BP 144/90 H Blood Pressure Location Lt brachial Position Sitting Pulse 74 Pulse Source Pulse Oximeter Temp 97.8 F Temp Source Temporal Artery Scan Pulse Oximetry (%) 99 Intake Visit Reasons: F/U DMII-R/S from 09/12 Clearance Cutter Required: No Accompanied by: Self / Same As Patient Allergies No Known Allergies Allergy (Verified 09/15/24 10:22) Medication List - Last Reconciled 09/15/24 by Missael Zafar PA-C blood pressure test kit-large As directed blood sugar diagnostic (FreeStyle Lite Strips) As directed blood-glucose meter (FreeStyle Lite Meter kit) Testing once a day as needed lancets (FreeStyle Lancets) Testing once a day as needed nicotine 1 patch transdermal DAILY 14 days nicotine 1 patch transdermal DAILY 14 days semaglutide (Ozempic) 0.25 mg (0.368 mL) subcut QWEEK 4 weeks Tobacco use date assessed: 09/15/24 Dental Screening Dental Screen Date: 09/15/24 Did you have a dental visit in the last 12 months?: Yes Did you have a dental problem in the last 6 months where you did not have access to dental care?: No Was dental information given to patient?: Patient has dentist HPI F/U DMII-R/S from 09/12 HPI Details Patient is a 54 -year-old male here today for a follow-up visit .Patient has past medical history of tob acco use disorder, hypertension, erectile dysfunction, obesity. .. Type 2 diabetes: Has a fairly new diagnosis type 2 diabetes. He did at that time report dietary indiscretion. He reports drinking a lot of soda and eating a lot of cereal. Has discontinued both metformin and glipizide due to parminder lization of his sugars for He continues on Ozempic which has been managing his sugars and reducing his appetite. Tobacco dependency: Admits to continued smoking. He reports he is mentally prepared to quit smoking as of the new year. He does have access to nicotine patches. . High blood pressure readings-- > noted elevated blood pressures at the last 2 office visits. Highly recommend starting blood pressure med patient though he declines. He would like to work on lifestyle and dietary modifications on reducing his blood pressure. [facility] Medical History Pain, dental Internal hemorrhoid Tubular adenoma COVID-19 vaccine series completed Umbilical hernia Constipation PRANAY (generalized anxiety disorder) Erectile disorder, generalized, mild Insomnia Smoker Elevated blood pressure reading Surgical History Hx of colonoscopy History of umbilical hernia repair Family History Father No problems noted. Mother Hepatitis C Liver cancer Social History Housing: House Are you a primary memory care program resident to a significant other at home: No Do you presently have visiting nurse or other home services: No Alcohol intake: never Patient Tobacco Use Status: Current everyday Tobacco user Tobacco use type: Cigarette Cigarette Packs Per Day: 1 Cigarettes Per Day: 20.0 Years Smoked: 20 e-Cigarette/Vaping Use: Never Used Second Hand Smoke Exposure: No service: No Current occupational status: employed Current occupation: [employer] Current occupational exposures/hazards: No Cognitive needs: No Hearing needs: No Vision needs: No Questionnaire PHQ-9 Over the last 2 weeks, how often have you been bothered by any of the following problems? 1. Little interest or pleasure in doing things: not at all 2. Feeling down, depressed, or hopeless: not at all 3. Trouble falling or staying asleep, or sleeping too much: not at all 4. Feeling tired or having little energy: not at all 5. Poor appetite or overeating: not at all 6. Feeling bad about yourself - or that you are a failure or have let yourself or your family down: not at all 7. Trouble concentrating on things, such as reading the newspaper or watching television: not at all 8. Moving or speaking so slowly that other people could have noticed. Or the opposite - being so fidgety or restless that you have been moving around a lot more than usual: not at all 9. Thoughts that you would be better off or of hurting yourself in some way: not at all Total score: 0 Depression Screening Interpretation: Negative Depression Screening Done: Yes 19004 - PHQ-9 Billing: Yes Source: Developed by Drs. Jean Carlos Cronin, Donnie Loyola and colleagues, with an educational joaquin from [employer]. Thrive Questionnaire Date Thrive assessed: 09/15/24 I am a: Patient What is your living situation today?: I have a steady place to live Within the past 12 months, did the food you bought not last and you didn't have the money to get more?: Never true Within the past 12 months, did you worry whether your food would run out before you got money to buy more?: Never true Do you have trouble paying for medicines?: No Do you have trouble getting transportation to medical appointments?: No Do you have trouble paying your heating and electricity bill?: No Do you have trouble taking care of your child, family member or friend?: No Do you have trouble with day-to-day activities such as bathing, preparing meals, shopping, managing finances, etc.?: No Are you currently unemployed and looking for a job?: No Are you interested in more education?: No Please select the resources that you would like help with: None Currently or been in a relationship where the following occur: No concerns reported THRIVE Score: 0 AUDIT C Alcohol Use Questionnaire (AUDIT-C) 1. How often do you have a drink containing alcohol?: Never 3. How often do you have six or more drinks on one occasion?: Never Total Score: 0 PRANAY-7 AMB Questionnaire PRANAY-7 Date PRANAY - 7 assessed: 09/15/24 Feeling nervous, anxious, or on edge: 0 = Not at all Not being able to stop or control worryin = Not at all Worrying too much about different things: 0 = Not at all Trouble relaxin = Not at all Being so restless that it is hard to sit still: 0 = Not at all Becoming easily annoyed or irritable: 0 = Not at all Feeling afraid as if something awful might happen: 0 = Not at all Total PRANAY-7 score (0-4 normal; 5-9 mild; 10-14 moderate; 15-21 severe): 0 Source: Developed by Yessy Torres Kurt Kroenke and colleagues, with an educational joaquin from [employer]. PRANAY-7 Assessment Billing PRANAY-7 Assessment Tool: PRANAY-7 Assessment 73588 Review of Systems Const Denies headache(s) Eyes Denies loss of vision ENT Denies vertigo, Denies dizziness, Denies headache(s) and Denies sore throat Card Denies chest pain, Denies leg edema and Denies lightheadedness Resp Denies cough, Denies hemoptysis and Denies wheezing GI Denies abdominal pain, Denies melena, Denies constipation, Denies diarrhea and Denies vomiting Denies dysuria, Denies urinary frequency and Denies urinary urgency Musc Denies arthralgias, Denies joint swelling, Denies numbness and Denies tingling Neuro Denies Abnormal speech present, Denies behavioral changes, Denies vertigo, Denies dizziness, Denies headache(s), Denies loss of vision, Denies memory loss, Denies numbness and Denies tingling Psych Denies anxiety, Denies behavioral changes, Denies depression, Denies memory loss and Denies panic attacks Liam/Lymph Denies easy bleeding and Denies easy bruising Aller/Immun Denies wheezing Physical exam (Primary Care) Vital Signs: Last Vital Signs Temp 97.8 F 09/15/24 10:10 Pulse 74 09/15/24 10:10 BP 144/90 H 09/15/24 10:10 Pulse Ox 99 09/15/24 10:10 BMI result Body Mass Index 33.0 Tobacco/Smoking Status: Tobacco use Status Tobacco use date assessed 09/15/24 09/15/24 10:20 Patient Tobacco Use Status Current everyday Tobacco 09/15/24 10:10 Tobacco use type Cigarette 09/15/24 10:10 e-Cigarette/Vaping Use Never Used 09/15/24 10:10 PHQ-9: PHQ-9 Score PHQ-9: Total score 0 09/15/24 10:24 Depression Screening Interpretation: Negative Thrive Assessment: Date of Thrive Assessment Date Thrive assessed 09/15/24 09/15/24 10:10 Currently or been in a relationship where the following occur: No concerns reported Const General: healthy appearing, no acute distress, alert and awake Nutritional Appearance: well nourished Orientation/consciousness: oriented to person, oriented to place and oriented to time HENMT Ears: TM's normal bilaterally General nose exam: Normal nasal mucous membranes and turbinates present Eyes Conjunctivae: conjunctivae normal Sclerae: sclerae normal Pupils: Equal, round and reactive pupils present Neck Neck: Yes no lymphadenopathy and Yes no JVD Thyroid: Thyroid normal Carotids: no bruits Resp Effort & Inspection: normal respiratory effort and not tachypneic Auscultation: no crackles, no rales, no rhonchi and no wheezes Cardio Rate: regular rate Rhythm: regular rhythm Heart sounds: no murmurs and normal S1 and S2 GI Palpation (GI): Soft to palpation, nontender, no hepatomegaly and no splenomegaly Auscultation: normal bowel sounds Skin General skin exam: no rashes or lesions noted and dry skin Neuro General: oriented to person, oriented to place and oriented to time Cranial nerves: Yes Equal, round and reactive pupils present Speech: No Abnormal speech present Gait exam (Neuro): Normal gait present Motor exam (neuro): no tremor noted Extrem Right upper extremity: full ROM Left upper extremity: full ROM Right lower extremity: full ROM; no edema Left lower extremity: full ROM; no edema Psych Mental Status: mental status grossly normal Speech and movement: Normal speech and movement present Affect: normal affect Attitude: cooperative Thought process: Normal thought process present Coding Level of Care Code Est Pt Level 4 (14237) Diagnoses Type 2 diabetes mellitus with hyperglycemia, without long-term current use of insulin E11.65 Diabetes mellitus complication status: with hyperglycemia Diabetes mellitus custodial insulin use: without termite treater use Tobacco dependence F17.200 Class 1 obesity E66.811 Primary hypertension I10 Hypertension type: primary hypertension Additional Codes PRANAY-7 Assessment Billing - PRANAY-7 Assessment Tool: PRANAY-7 Assessment 00484 ([id number]) PHQ-9 - 95292 - PHQ-9 Billing: Yes ([id number]) Assessment & Plan Assessment & Plan (1) DMII (diabetes mellitus, type 2): Code(s): E11.9 - Type 2 diabetes mellitus without complications Category: Medical Qualifiers: Diabetes mellitus complication status: with hyperglycemia Diabetes mellitus custodial insulin use: without termite treater use Qualified Code(s): E11.65 - Type 2 diabetes mellitus with hyperglycemia Plan: Patient's type 2 diabetes now well controlled. A1c now 5.0. Will hold off on glipizide and metformin for now. We will continue the use of once weekly Ozempic for glycemic control. Goal A1c is to remain below 7.0 (2) Tobacco dependence: Code(s): F17.200 - Nicotine dependence, unspecified, uncomplicated Category: Medical Plan: Patient does understand he needs to quit smoking. Has had a very hard time quitting smoking though has cut down.. . He has found success with nicotine patches in the past. Will supply patient with nicotine patches. (3) Class 1 obesity: Code(s): E66.811 - Obesity, class 1 Category: Medical Plan: Patient does understand his BMI is over 30 will work on being more physically active and adapt to better eating habits to reduce his weight (4) HTN (hypertension): Code(s): I10 - Essential (primary) hypertension Category: Medical Qualifiers: Hypertension type: primary hypertension Qualified Code(s): I10 - Essential (primary) hypertension Plan: As per HPI patient is blood pressure slightly elevated. We discussed starting blood pressure medication though he would like to hold off and work on lifestyle and dietary modifications. Goal blood pressures to be below 140/90 Orders: Orders Complete Blood Count no Diff Today E11.65 - Type 2 diabetes mellitus with hyperglycemia Comprehensive [place]. Panel Fast Today E11.65 - Type 2 diabetes mellitus with hyperglycemia Lipid Panel Today E78.9 - Disorder of lipoprotein metabolism, unspecified
== END 2024-09-15 10:40 | disposition home or self-care (01) ==
LOC: HO.HMCH 10:00
PROVIDERS: PCP Physician Assistant; Visit Provider Physician Assistant
DX: E11.65 Type 2 diabetes mellitus with hyperglycemia (principal); F17.200 Nicotine dependence, unspecified, uncomplicated; Z68.33 Body mass index [BMI] 33.0-33.9, adult; E66.811 Obesity, class 1; I10 Essential (primary) hypertension

== ENCOUNTER → 2024-09-15 09:59 | Outpatient (BNVA) | payer BC, SELFPAY | PROVIDERS: PCP Physician Assistant; Visit Provider Physician Assistant | DX: E11.65 Type 2 diabetes mellitus with hyperglycemia (principal); E66.811 Obesity, class 1; I10 Essential (primary) hypertension; F17.200 Nicotine dependence, unspecified, uncomplicated | CPT/HCPCS: 96127 ==

== ENCOUNTER 2024-12-19 10:41 | Outpatient (AMB) | payer BC, SELFPAY ==
--- NOTE | 2024-12-19 10:43 | A.OFFPC_ITS ---
Vital Signs 12/19/24 10:46 Height 5 ft 4 in Weight 179 lb BMI 30.7 BP 136/90 H Blood Pressure Location Lt brachial Position Sitting Pulse 85 Pulse Source Pulse Oximeter Temp 97.5 F Temp Source Temporal Artery Scan Pulse Oximetry (%) 96 Oxygen Delivery Method Room Air Intake Visit Reasons: 3 Month F/U Audiology Doctor Required: No Accompanied by: Self / Same As Patient Allergies No Known Allergies Allergy (Verified 12/19/24 11:03) Medication List - Last Reconciled 12/19/24 by Missael Zafar PA-C blood pressure test kit-large As directed blood sugar diagnostic (FreeStyle Lite Strips) As directed blood-glucose meter (FreeStyle Lite Meter kit) Testing once a day as needed lancets (FreeStyle Lancets) Testing once a day as needed semaglutide (Ozempic) 0.25 mg (0.368 mL) subcut QWEEK 4 weeks Tobacco use date assessed: 09/15/24 Dental Screening Dental Screen Date: 09/15/24 HPI 3 Month F/U HPI Details Patient is a 54 -year-old male here today for a follow-up visit .Patient has past medical history of tob acco use disorder, hypertension, erectile dysfunction, obesity. Concern--> continues to have trouble sleeping. Has tried hydroxyzine and trazodone in the past though had side effects. Has tried his 's diazepam and slept well though would like to stay away from narcotic medication. PLAN: Will try trazodone to help sleep .. Type 2 diabetes: Has a fairly new diagnosis type 2 diabetes. He did at that time report dietary indiscretion. He continues on Ozempic which has been managing his sugars and reducing his appetite. We have noted significant amount of weight loss. Most recent A1c at 4.9 Tobacco dependency: Admits to continued smoking a bit more lately due to losing his job.. He reports he is mentally prepared to quit smoking as of the new year. He does have access to nicotine patches. . High blood pressure readings-- > noted elevated blood pressures at the last 2 office visits. Highly recommend starting blood pressure med patient though he declines. He would like to work on lifestyle and dietary modifications on reducing his blood pressure. COUNTS INCLUDE 234 BEDS AT THE [facility] Medical History Pain, dental Internal hemorrhoid Tubular adenoma COVID-19 vaccine series completed Umbilical hernia Constipation PRANAY (generalized anxiety disorder) Erectile disorder, generalized, mild Insomnia Smoker Elevated blood pressure reading Surgical History Hx of colonoscopy History of umbilical hernia repair Family History Father No problems noted. Mother Hepatitis C Liver cancer Social History Housing: House Are you a primary physician primary care sports medicine to a significant other at home: No Do you presently have visiting nurse or other home services: No Alcohol intake: never Patient Tobacco Use Status: Current everyday Tobacco user Tobacco use type: Cigarette Cigarette Packs Per Day: 1 Cigarettes Per Day: 20.0 Years Smoked: 20 e-Cigarette/Vaping Use: Never Used Second Hand Smoke Exposure: No service: No Current occupational status: employed Current occupation: [employer] Current occupational exposures/hazards: No Cognitive needs: No Hearing needs: No Vision needs: No Questionnaire PHQ-9 Over the last 2 weeks, how often have you been bothered by any of the following problems? 1. Little interest or pleasure in doing things: not at all 2. Feeling down, depressed, or hopeless: not at all 3. Trouble falling or staying asleep, or sleeping too much: several days 4. Feeling tired or having little energy: not at all 5. Poor appetite or overeating: not at all 6. Feeling bad about yourself - or that you are a failure or have let yourself or your family down: not at all 7. Trouble concentrating on things, such as reading the newspaper or watching television: not at all 8. Moving or speaking so slowly that other people could have noticed. Or the opposite - being so fidgety or restless that you have been moving around a lot more than usual: not at all 9. Thoughts that you would be better off or of hurting yourself in some way: not at all Total score: 1 Depression Screening Interpretation: Negative Depression Screening Done: Yes [id number] - PHQ-9 Billing: Yes Source: Developed by Drs. Jean Carlos L. Mehrdad, Donnie Loyola and colleagues, with an educational joaquin from [employer]. Thrive Questionnaire Date Thrive assessed: 09/15/24 I am a: Patient What is your living situation today?: I have a steady place to live Within the past 12 months, did the food you bought not last and you didn't have the money to get more?: Never true Within the past 12 months, did you worry whether your food would run out before you got money to buy more?: Never true Do you have trouble paying for medicines?: No Do you have trouble getting transportation to medical appointments?: No Do you have trouble paying your heating and electricity bill?: No Do you have trouble taking care of your child, family member or friend?: No Do you have trouble with day-to-day activities such as bathing, preparing meals, shopping, managing finances, etc.?: No Are you currently unemployed and looking for a job?: Yes Are you interested in more education?: No Please select the resources that you would like help with: None Currently or been in a relationship where the following occur: No concerns reported THRIVE Score: 0 AUDIT C Alcohol Use Questionnaire (AUDIT-C) 1. How often do you have a drink containing alcohol?: Never Total Score: 0 PRANAY-7 AMB Questionnaire PRANAY-7 Date PRANAY - 7 assessed: 09/15/24 Feeling nervous, anxious, or on edge: 0 = Not at all Not being able to stop or control worryin = Several days Worrying too much about different things: 1 = Several days Trouble relaxin = Several days Being so restless that it is hard to sit still: 0 = Not at all Becoming easily annoyed or irritable: 0 = Not at all Feeling afraid as if something awful might happen: 0 = Not at all Total PRANAY-7 score (0-4 normal; 5-9 mild; 10-14 moderate; 15-21 severe): 3 Source: Developed by Drs. Jean Carlos Cronin, Donnie Loyola and colleagues, with an educational joaquin from [employer]. PRANAY-7 Assessment Billing PRANAY-7 Assessment Tool: PRANAY-7 Assessment 83514 Review of Systems Const Denies headache(s) Eyes Denies loss of vision ENT Denies vertigo, Denies dizziness, Denies headache(s) and Denies sore throat Card Denies chest pain, Denies leg edema and Denies lightheadedness Resp Denies cough, Denies hemoptysis and Denies wheezing GI Denies abdominal pain, Denies melena, Denies constipation, Denies diarrhea and Denies vomiting Denies dysuria, Denies urinary frequency and Denies urinary urgency Musc Denies arthralgias, Denies joint swelling, Denies numbness and Denies tingling Neuro Denies Abnormal speech present, Denies behavioral changes, Denies vertigo, Denies dizziness, Denies headache(s), Denies loss of vision, Denies memory loss, Denies numbness and Denies tingling Psych Denies anxiety, Denies behavioral changes, Denies depression, Denies memory loss and Denies panic attacks Liam/Lymph Denies easy bleeding and Denies easy bruising Aller/Immun Denies wheezing Physical exam (Primary Care) Vital Signs: Last Vital Signs Temp 97.5 F 12/19/24 10:46 Pulse 85 12/19/24 10:46 BP 136/90 H 12/19/24 10:46 Pulse Ox 96 12/19/24 10:46 Oxygen Delivery Method Room Air 12/19/24 10:46 BMI result Body Mass Index 30.7 Tobacco/Smoking Status: Tobacco use Status Tobacco use date assessed 09/15/24 12/19/24 10:45 Patient Tobacco Use Status Current everyday Tobacco 12/19/24 10:45 Tobacco use type Cigarette 12/19/24 10:45 e-Cigarette/Vaping Use Never Used 12/19/24 10:45 PHQ-9: PHQ-9 Score PHQ-9: Total score 1 12/19/24 14:29 Depression Screening Interpretation: Negative Thrive Assessment: Date of Thrive Assessment Date Thrive assessed 09/15/24 12/19/24 10:45 Currently or been in a relationship where the following occur: No concerns reported Const General: healthy appearing, no acute distress, alert and awake Nutritional Appearance: well nourished Orientation/consciousness: oriented to person, oriented to place and oriented to time HENMT Ears: TM's normal bilaterally General nose exam: Normal nasal mucous membranes and turbinates present Eyes Conjunctivae: conjunctivae normal Sclerae: sclerae normal Pupils: Equal, round and reactive pupils present Neck Neck: Yes no lymphadenopathy and Yes no JVD Thyroid: Thyroid normal Carotids: no bruits Resp Effort & Inspection: normal respiratory effort and not tachypneic Auscultation: no crackles, no rales, no rhonchi and no wheezes Cardio Rate: regular rate Rhythm: regular rhythm Heart sounds: no murmurs and normal S1 and S2 GI Palpation (GI): Soft to palpation, nontender, no hepatomegaly and no splenomegaly Auscultation: normal bowel sounds Skin General skin exam: no rashes or lesions noted and dry skin Neuro General: oriented to person, oriented to place and oriented to time Cranial nerves: Yes Equal, round and reactive pupils present Speech: No Abnormal speech present Gait exam (Neuro): Normal gait present Motor exam (neuro): no tremor noted Extrem Right upper extremity: full ROM Left upper extremity: full ROM Right lower extremity: full ROM; no edema Left lower extremity: full ROM; no edema Psych Mental Status: mental status grossly normal Speech and movement: Normal speech and movement present Affect: normal affect Attitude: cooperative Thought process: Normal thought process present Results AMB Hemoglobin A1c AMB Hemoglobin A1c 4.8 % Last Edit by Stefanie Werner MA on 12/19/24 11:02 Results Reviewed Results Reviewed: Laboratory Last Values Hgb A1c (Clinic) 4.8 % (4.0-6.0) 12/19/24 10:43 Coding Level of Care Code Est Pt Level 4 (63305) Diagnoses Type 2 diabetes mellitus with hyperglycemia, without long-term current use of insulin E11.65 Diabetes mellitus complication status: with hyperglycemia Diabetes mellitus retirement insulin use: without retirement use Tobacco dependence F17.200 Class 1 obesity E66.811 Primary hypertension I10 Hypertension type: primary hypertension Primary insomnia F51.01 Insomnia type: primary Additional Codes PRANAY-7 Assessment Billing - PRANAY-7 Assessment Tool: PRANAY-7 Assessment [id number] ([id number]) PHQ-9 - 09288 - PHQ-9 Billing: Yes ([id number]) Assessment & Plan Assessment & Plan (1) DMII (diabetes mellitus, type 2): Code(s): E11.9 - Type 2 diabetes mellitus without complications Category: Medical Qualifiers: Diabetes mellitus complication status: with hyperglycemia Diabetes mellitus retirement insulin use: without retirement use Qualified Code(s): E11.65 - Type 2 diabetes mellitus with hyperglycemia Plan: Patient's type 2 diabetes now well controlled. A1c now below 5 We will continue the use of once weekly Ozempic for glycemic control. Goal A1c is to remain below 7.0 (2) Tobacco dependence: Code(s): F17.200 - Nicotine dependence, unspecified, uncomplicated Category: Medical Plan: Patient does understand he needs to quit smoking. Has had a very hard time quitting smoking though has cut down.. . He has found success with nicotine patches in the past. Will supply patient with nicotine patches. (3) Class 1 obesity: Code(s): E66.811 - Obesity, class 1 Category: Medical Plan: Patient does understand his BMI is over 30 will work on being more physically active and adapt to better eating habits to reduce his weight (4) HTN (hypertension): Code(s): I10 - Essential (primary) hypertension Category: Medical Qualifiers: Hypertension type: primary hypertension Qualified Code(s): I10 - Essential (primary) hypertension Plan: As per HPI patient is blood pressure slightly elevated. We discussed starting blood pressure medication though he would like to hold off and work on lifestyle and dietary modifications. Goal blood pressures to be below 140/90 (5) Insomnia: Code(s): G47.00 - Insomnia, unspecified Category: Medical Qualifiers: Insomnia type: primary Qualified Code(s): F51.01 - Primary insomnia Plan: Continues to have trouble sleeping. He reports taking his 's diazepam in his slept through the night. He will like to hold off on any narcotic medication. He is willing to try Seroquel 25 mg before bed to help sleep. Orders: Orders AMB Hemoglobin A1c Today E11.65 - Type 2 diabetes mellitus with hyperglycemia Medications: New quetiapine (Seroquel) 25 mg PO BEDTIME 30 tabs 0RF 30 days F51.01 - Primary insomnia
[2024-12-19 10:46] VITALS: BP 136/90; PULSE 85; TEMP 36.4; O2SAT 96; BMI 30.7
== END 2024-12-19 11:27 | disposition home or self-care (01) ==
LOC: HO.HMCH 10:42
PROVIDERS: PCP Physician Assistant; Visit Provider Physician Assistant
DX: E11.65 Type 2 diabetes mellitus with hyperglycemia (principal); F17.200 Nicotine dependence, unspecified, uncomplicated; E66.811 Obesity, class 1; Z68.30 Body mass index [BMI] 30.0-30.9, adult; I10 Essential (primary) hypertension; F51.01 Primary insomnia

== ENCOUNTER → 2024-12-19 10:41 | Outpatient (BNVA) | payer BC, SELFPAY | PROVIDERS: PCP Physician Assistant; Visit Provider Physician Assistant | DX: E11.65 Type 2 diabetes mellitus with hyperglycemia (principal); I10 Essential (primary) hypertension; N52.9 Male erectile dysfunction, unspecified; R03.0 Elevated blood-pressure reading, without diagnosis of hypertension; F17.210 Nicotine dependence, cigarettes, uncomplicated; E66.811 Obesity, class 1; F51.01 Primary insomnia; Z68.30 Body mass index [BMI] 30.0-30.9, adult | CPT/HCPCS: 83036; 96127 ==

== ENCOUNTER 2024-12-28 13:18 | Outpatient (REF) | payer SELFPAY ==
[2024-12-28 14:13] LABS: Hematocrit 44.2 % (42.0-52.0); Hemoglobin 14.4 g/dl (14.0-18.0); Mean Corpuscular HGB Conc 32.6 g/dl (31.0-36.0); Mean Corpuscular Hemoglobin 25.4 pg (27.0-33.0); Mean Corpuscular Volume 77.8 fL (80.0-98.0); NRBC Abs Auto 0.000 X10*3/uL (0.0-0.012); NRBC Pct Auto 0.0 /100WBC (0.0-0.2); Platelet Count 246 X10*3/uL (160-400); Red Blood Count 5.68 X10*6/uL (4.60-5.80); White Blood Count 9.2 X10*3/uL (4.8-10.8)
[2024-12-28 14:46] LABS: Alanine Aminotransferase 18 U/L (0-40); Albumin Level 4.6 g/dL (3.5-5.0); Alkaline Phosphatase 67 U/L (39-117); Anion Gap 12 (12-20); Aspartate Amino Transferase 29 U/L (5-37); Blood Urea Nitrogen 11 mg/dL (9-16); Calcium 9.3 mg/dL (8.4-10.2); Carbon Dioxide 27 mmol/L (22-29); Chloride 106 mmol/L (96-108); Cholesterol 189 mg/dL (<200); Estimated Glomerular Filt Rate > 60; HDL Cholesterol 45 mg/dL (>40); Potassium 4.7 mmol/L (3.3-5.1); Sodium 140 mmol/L (135-145); Total Protein 7.3 g/dL (6.5-8.0); Triglycerides 82 mg/dL (<150)
== END 2024-12-28 13:19 | disposition home or self-care (01) ==
LOC: HO.LAB 13:18
PROVIDERS: PCP Physician Assistant; Visit Provider Physician Assistant
DX: E11.65 Type 2 diabetes mellitus with hyperglycemia (principal); E78.9 Disorder of lipoprotein metabolism, unspecified
CPT/HCPCS: 36415; 80053; 80061; 85027

== ENCOUNTER 2025-05-02 10:44 | Outpatient (AMB) | payer OTHER, SELFPAY ==
[2025-05-02 10:49] VITALS: BP 130/100; PULSE 102; TEMP 36.3; O2SAT 98; BMI 32.8
--- NOTE | 2025-05-02 10:49 | A.OFFPC_ITS ---
Vital Signs 05/02/25 10:49 Height 5 ft 4 in Weight 191 lb BMI 32.8 BP 130/100 H Blood Pressure Location Lt brachial Position Sitting Pulse 102 H Pulse Source Pulse Oximeter Temp 97.3 F Temp Source Temporal Artery Scan Pulse Oximetry (%) 98 Oxygen Delivery Method Room Air Intake Visit Reasons: Annual exam Pulverizer Operator Required: No Accompanied by: Self / Same As Patient Allergies trazodone Adverse Reaction (Intermediate, Verified 05/02/25 11:24) Jiddery Medication List - Last Reconciled 05/02/25 by Missael Zafar PA-C blood pressure test kit-large As directed blood sugar diagnostic (FreeStyle Lite Strips) As directed blood-glucose meter (FreeStyle Lite Meter kit) Testing once a day as needed lancets (FreeStyle Lancets) Testing once a day as needed tirzepatide (Mounjaro) 2.5 mg (0.5 mL) subcut QWEEK 4 weeks Tobacco use date assessed: 05/02/25 Dental Screening Dental Screen Date: 05/02/25 Did you have a dental visit in the last 12 months?: No Did you have a dental problem in the last 6 months where you did not have access to dental care?: No Was dental information given to patient?: No HPI Annual exam HPI Details Patient is a 55 -year-old male here today for an annual physical Patient has past medical history of tobacco use disorder, hypertension, erectile dysfunction, obesity. Concern--> Insomnia : continues to have trouble sleeping. Has tried hydroxyzine and trazodone in the past though had side effects. He has been under tremendous amount of stress due to legal issues from his former job .. Type 2 diabetes: Has gained weight since last office visit. He has not been working due to legally shows at his former job. He has been under lot of stress. Tobacco dependency: Admits to continued smoking a bit more lately due to losing his job. He feels when his lethality issues are over an done with he will quit smoking. . HTN- > noted elevated blood pressures at multiple office visits. Highly recommend starting blood pressure med patient though he declines. He would like to work on lifestyle and dietary modifications on reducing his blood pressure. .. Hyperlipidemia: Have noted elevated total cholesterol and LDL for his cardiovascular risks being a diabetic. Offered statin therapy though he declines and will like to work on lifestyle and dietary modifications Vaccine: UTD with COVID Vaccine,, Declines flu vaccine, considering Shingles vaccine , Needs Tdap. . Colonoscopy: Colonoscopy done in 2020. Had colon polyp needs repeat in 5 years [facility] Medical History Pain, dental Internal hemorrhoid Tubular adenoma COVID-19 vaccine series completed Umbilical hernia Constipation PRANAY (generalized anxiety disorder) Erectile disorder, generalized, mild Insomnia Smoker Elevated blood pressure reading Surgical History Hx of colonoscopy History of umbilical hernia repair Family History Father No problems noted. Mother Hepatitis C Liver cancer Social History (Updated 05/02/25 @ 11:18 by Missael Zafar PA-C) Housing: House Are you a primary resident care assistant to a significant other at home: No Do you presently have visiting nurse or other home services: No Alcohol intake: never Patient Tobacco Use Status: Current everyday Tobacco user Tobacco use type: Cigarette Cigarette Packs Per Day: 1 Cigarettes Per Day: 20.0 Years Smoked: 20 e-Cigarette/Vaping Use: Never Used Second Hand Smoke Exposure: No service: No Current occupational status: unemployed Current occupational exposures/hazards: No Cognitive needs: No Hearing needs: No Vision needs: No Questionnaire PHQ-9 Over the last 2 weeks, how often have you been bothered by any of the following problems? 1. Little interest or pleasure in doing things: not at all 2. Feeling down, depressed, or hopeless: not at all 3. Trouble falling or staying asleep, or sleeping too much: several days 4. Feeling tired or having little energy: not at all 5. Poor appetite or overeating: not at all 6. Feeling bad about yourself - or that you are a failure or have let yourself or your family down: not at all 7. Trouble concentrating on things, such as reading the newspaper or watching television: not at all 8. Moving or speaking so slowly that other people could have noticed. Or the opposite - being so fidgety or restless that you have been moving around a lot more than usual: not at all 9. Thoughts that you would be better off or of hurting yourself in some way: not at all Total score: 1 Depression Screening Interpretation: Negative Depression Screening Done: Yes Source: Developed by Drs. Jean Carlos Cronin, Yessy Junior, Donnie Saunders and colleagues, with an educational joaquin from [employer]. Thrive Questionnaire Date Thrive assessed: 12/19/24 I am a: Patient What is your living situation today?: I have a steady place to live Within the past 12 months, did the food you bought not last and you didn't have the money to get more?: Never true Within the past 12 months, did you worry whether your food would run out before you got money to buy more?: Never true Do you have trouble paying for medicines?: No Do you have trouble getting transportation to medical appointments?: No Do you have trouble paying your heating and electricity bill?: No Do you have trouble taking care of your child, family member or friend?: No Do you have trouble with day-to-day activities such as bathing, preparing meals, shopping, managing finances, etc.?: No Are you currently unemployed and looking for a job?: Yes Are you interested in more education?: No Please select the resources that you would like help with: None Currently or been in a relationship where the following occur: No concerns reported THRIVE Score: 0 AUDIT C Alcohol Use Questionnaire (AUDIT-C) 1. How often do you have a drink containing alcohol?: Never 2. How many drinks containing alcohol do you have on a typical day when you are drinking?: 1 or 2 Total Score: 0 PRANAY-7 AMB Questionnaire PRANAY-7 Date PRANAY - 7 assessed: 09/15/24 Feeling nervous, anxious, or on edge: 0 = Not at all Not being able to stop or control worryin = Several days Worrying too much about different things: 1 = Several days Trouble relaxin = Several days Being so restless that it is hard to sit still: 0 = Not at all Becoming easily annoyed or irritable: 0 = Not at all Feeling afraid as if something awful might happen: 0 = Not at all Total PRANAY-7 score (0-4 normal; 5-9 mild; 10-14 moderate; 15-21 severe): 3 Source: Developed by Drs. Jean Carlos Cronin, Yessy Junior, Donnie Saunders and colleagues, with an educational joaquin from [employer]. Review of Systems Const Denies body aches, Denies chills, Denies excessive sweating, Denies fatigue, Denies fever(s) and Denies headache(s) Eyes Denies blurry vision ENT Denies dysphagia, Denies vertigo, Denies dizziness, Denies headache(s), Denies hearing loss and Denies tinnitus Card Denies chest pain, Denies chest pain with activity, Denies syncope, Denies irregular heart rhythm and Denies dyspnea Resp Denies chest congestion, Denies cough, Denies hemoptysis, Denies dyspnea and Denies wheezing GI Denies abdominal pain, Denies melena, Denies hematochezia, Denies coffee ground emesis, Denies dysphagia, Denies diarrhea, Denies nausea and Denies vomiting Denies difficulty urinating, Denies dysuria, Denies urinary frequency, Denies urinary hesitancy and Denies urinary urgency Musc Denies arthralgias, Denies limited range of motion, Denies muscle cramps and Denies muscle weakness Skin/Breast Denies rash and Denies skin ulcer Neuro Denies Abnormal speech present, Denies confusion, Denies vertigo, Denies dizziness, Denies syncope, Denies headache(s), Denies memory loss and Denies seizure-like activity Psych Denies anxiety, Denies confusion, Denies depression, Denies memory loss, Denies panic attacks and Denies paranoia Endo Denies excessive sweating, Denies fatigue, Denies flushing, Denies polydipsia and Denies polyuria Aller/Immun Denies wheezing Physical exam (Primary Care) Vital Signs: Last Vital Signs Temp 97.3 F 05/02/25 10:49 Pulse 102 H 05/02/25 10:49 BP 130/100 H 05/02/25 10:49 Pulse Ox 98 05/02/25 10:49 Oxygen Delivery Method Room Air 05/02/25 10:49 BMI result Body Mass Index 32.8 Tobacco/Smoking Status: Tobacco use Status Tobacco use date assessed 05/02/25 05/02/25 10:52 Patient Tobacco Use Status Current everyday Tobacco 05/02/25 11:18 Tobacco use type Cigarette 05/02/25 11:18 e-Cigarette/Vaping Use Never Used 05/02/25 11:18 PHQ-9: PHQ-9 Score PHQ-9: Total score 1 05/02/25 11:33 Depression Screening Interpretation: Negative Thrive Assessment: Date of Thrive Assessment Date Thrive assessed 12/19/24 05/02/25 10:52 Currently or been in a relationship where the following occur: No concerns reported Const General: cooperative, comfortable, no acute distress, alert and awake; No confusion Orientation/consciousness: oriented to person, oriented to place, patient oriented x3 and No confusion HENMT Head: Yes normocephalic Ears: external ears normal and TM's normal bilaterally Face and sinus: No sinus tenderness Mouth: Normal oral and palatal mucosa present and tongue normal Teeth and gingiva: dentition normal and gingiva normal Throat: Yes posterior oropharynx normal, Yes tonsils normal and Yes uvula midline Eyes Conjunctivae: conjunctivae normal Sclerae: sclerae normal Pupils: Equal, round and reactive pupils present EOM: EOMs intact bilaterally Direct Ophthalmoscopy: No no photophobia Neck Neck: Yes no lymphadenopathy, No tender and Yes no JVD Thyroid: Thyroid normal Carotids: no bruits Chest Chest palpation & inspection: no tenderness Resp Effort & Inspection: normal respiratory effort, no audible wheezes, not labored and no stridor Auscultation: no crackles, no rales, no rhonchi and no wheezes Cardio Jugular venous distension: no JVD Rate: regular rate, not bradycardic and not tachycardic Rhythm: regular rhythm Bruits: no carotid bruits Peripheral pulses: Peripheral pulses 2+ throughout GI Inspection: Yes normal to inspection, No abdominal wall ecchymosis and No visible herniation Palpation (GI): Soft to palpation, nontender, no guarding, not rigid and No hepatosplenomegaly present Auscultation: normoactive bowel sounds General: Yes no CVA tenderness Back/Spine/Pelvis Back: no CVA tenderness and No back tenderness Cervical Spine: cervical ROM normal Thoracic/Lumbar Spine: thoracic and lumbar spine normal to inspection, straight leg raise negative bilaterally, No thoraco-lumbar ROM limited and No lumbar spinal tenderness Skin Lesions: no lesions Rashes: no rashes Wounds: no wounds Neuro General: oriented to person, oriented to place, patient oriented x3, CN's II-XI intact bilaterally and No confusion Cranial nerves: Yes Equal, round and reactive pupils present and Yes Normal accommodation reflex present Cognition (Neuro): normal cognition Speech: No Abnormal speech present Gait exam (Neuro): Normal gait present Motor exam (neuro): 5/5 motor strength present throughout Extrem Right upper extremity: full ROM; no cyanosis Left upper extremity: full ROM; no cyanosis Right lower extremity: no edema Left lower extremity: no edema Psych Appearance: grossly normal Mental Status: mental status grossly normal Affect: normal affect Attitude: cooperative Thought process: Normal thought process present Immunizations Boostrix Tdap 2.5 Lf unit-8 mcg-5 Lf/0.5 mL intramuscular syringe Performing Provider: Missael Zafar PA-C [facility] [place] [facility] Administered by: EVI Cartagena on 05/02/25 11:36 Dose Route Admin Location Dispensed Lot Number Expiration Date NDC Electronic Device Monitor 0.5 mL IM Left Deltoid 0.5 mL [id number] 12/02/27 [id number] [employer] Total Dispensed Waste 0.5 mL 0 % VIS Given Date VIS Provided VIS Publication Date 05/02/25 Single Vaccine 21 Eligibility Eligibility Date Funding Source Not [facility] Eligible 05/02/25 Private Coding Level of Care Code Est Pt Level 4 (84609) Diagnoses Annual physical exam Z00.00 Type 2 diabetes mellitus with hyperglycemia, without long-term current use of insulin E11.65 Diabetes mellitus complication status: with hyperglycemia Diabetes mellitus mcc insulin use: without mcc use Tobacco dependence F17.200 Class 1 obesity E66.811 Primary hypertension I10 Hypertension type: primary hypertension Primary insomnia F51.01 Insomnia type: primary Assessment & Plan Assessment & Plan (1) Annual physical exam: Code(s): Z00.00 - Encounter for general adult medical examination without abnormal findings Category: Medical Plan: as per HPI (2) DMII (diabetes mellitus, type 2): Code(s): E11.9 - Type 2 diabetes mellitus without complications Category: Medical Qualifiers: Diabetes mellitus complication status: with hyperglycemia Diabetes mellitus termite control representative insulin use: without termite control representative use Qualified Code(s): E11.65 - Type 2 diabetes mellitus with hyperglycemia Plan: Patient's type 2 diabetes now well controlled. A1c now below 5 Patient now on a new GLP 1 and feels it is not as effective (3) Tobacco dependence: Code(s): F17.200 - Nicotine dependence, unspecified, uncomplicated Category: Medical Plan: Patient does understand he needs to quit smoking. Has had a very hard time quitting smoking though has cut down.. Patient has nicotine replacement available to him (4) Class 1 obesity: Code(s): E66.811 - Obesity, class 1 Category: Medical Plan: Patient does understand his BMI is over 30 will work on being more physically active and adapt to better eating habits to reduce his weight (5) HTN (hypertension): Code(s): I10 - Essential (primary) hypertension Category: Medical Qualifiers: Hypertension type: primary hypertension Qualified Code(s): I10 - Essential (primary) hypertension Plan: As per HPI patient is blood pressure slightly elevated. We discussed starting blood pressure medication though he would like to hold off and work on lifestyle and dietary modifications. Goal blood pressures to be below 140/90 (6) Insomnia: Code(s): G47.00 - Insomnia, unspecified Category: Medical Qualifiers: Insomnia type: primary Qualified Code(s): F51.01 - Primary insomnia Plan: Continues to have trouble sleeping. He has tried trazodone and hydroxyzine in the past though had side effects. He is willing to try lorazepam 1 mg as needed for sleep as he is going through a tough time with legal issues from losing his job. Orders: Orders Complete Blood Count no Diff Today I10 - Essential (primary) hypertension Comprehensive Brady. Panel Fast Today I10 - Essential (primary) hypertension Prostate Specific Antigen Scr Today I10 - Essential (primary) hypertension, Z12.5 - Encounter for screening for malignant neoplasm of prostate Microalbumin, Random (w Creat) Today I10 - Essential (primary) hypertension Lipid Panel Today E78.9 - Disorder of lipoprotein metabolism, unspecified Hemoglobin A1c Today E11.65 - Type 2 diabetes mellitus with hyperglycemia TDaP Immunization Today F51.01 - Primary insomnia, Z23 - Encounter for immunization Referrals Ophthalmology Referral E11.65 - Type 2 diabetes mellitus with hyperglycemia Lung Cancer Screening Referral F17.200 - Nicotine dependence, unspecified, uncomplicated Medications: New tirzepatide (Mounjaro) 5 mg (0.5 mL) subcut QWEEK 2 mL 1RF 4 weeks E11.65 - Type 2 diabetes mellitus with hyperglycemia lorazepam 0.5 mg PO BEDTIME PRN 7 tabs 0RF anxiety 7 days F51.01 - Primary insomnia On Hold tirzepatide (Mounjaro) Hold Comment: Doctor's Order 2.5 mg (0.5 mL) subcut QWEEK 4 weeks 2 mL 1RF E11.65 - Type 2 diabetes mellitus with hyperglycemia Patient Instructions: Goal: A1c to remain below 7.0, LDL to be below 100, blood pressure to be below 140/90 Barriers: Adherence to physical activity and healthy eating habits
== END 2025-05-02 11:38 | disposition home or self-care (01) ==
LOC: HO.HMCH 10:45
PROVIDERS: PCP Physician Assistant; Visit Provider Physician Assistant
DX: Z00.00 Encounter for general adult medical examination without abnormal findings (principal); E11.65 Type 2 diabetes mellitus with hyperglycemia; E66.811 Obesity, class 1; Z68.32 Body mass index [BMI] 32.0-32.9, adult; I10 Essential (primary) hypertension; F17.200 Nicotine dependence, unspecified, uncomplicated; F51.01 Primary insomnia; Z23 Encounter for immunization

== ENCOUNTER → 2025-05-02 10:44 | Outpatient (BNVA) | payer OTHER, SELFPAY | PROVIDERS: PCP Physician Assistant; Visit Provider Physician Assistant | DX: Z00.00 Encounter for general adult medical examination without abnormal findings (principal); Z23 Encounter for immunization; E11.65 Type 2 diabetes mellitus with hyperglycemia; E66.811 Obesity, class 1; I10 Essential (primary) hypertension; F51.01 Primary insomnia; F17.210 Nicotine dependence, cigarettes, uncomplicated; Z68.32 Body mass index [BMI] 32.0-32.9, adult | CPT/HCPCS: 90471; 90715; 99396 ==